=== PATIENT | male | born 1940 | race American Indian/Alaskan Native ===

== ENCOUNTER 2020-06-16 10:27 | Observation (INO) | payer MEDICARE ==
--- NOTE | 2020-06-16 10:48 | Emergency Department Report ---
ED Chest Pain HPI - General Chief Complaint: Chest Pain Stated Complaint: CHEST PAIN PUI?: No Time Seen by Provider: 06/16/20 10:39 Source: patient, EMS ( EMS documentation not available at time of chart dictation ), RN notes reviewed Mode of arrival: Stretcher Limitations: Other (Patient is a poor historian) - History of Present Illness Initial Comments: The patient was evaluated in the emergency department for symptoms described in the history of present illness. He/she was evaluated in the context of the global COVID-19 pandemic, which necessitated consideration that the patient might be at risk for infection with the virus that causes COVID-19. Institutional protocols and algorithms that pertain to the evaluation of patients at risk for COVID-19 are in a state of rapid change based on information released by regulatory bodies including the CDC and federal and state organizations. These policies and algorithms were followed during the patient's care in the emergency department. Please note that these policies, procedures and recommendations changed on a rapid basis. The patient is a 80-year-old gentleman. He is not known to myself previously. 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 He reports his past medical history includes non-Hodgkin's lymphoma, now resolved, rheumatoid arthritis, hypothyroidism, possible hypertension and high cholesterol; he is not certain. He presents to the ER with a complaint of nontraumatic left-sided intermittent chest pain. The chest pain is left-sided and he indicates he does not radiate to the back, arms or neck. He denies vomiting or diaphoresis. He denies new/different shortness of breath. He denies headache and neck pain. He reports that he received the [employer] Vincent COVID- 19 vaccination a few months ago. He reports 1 month ago, he felt like he lost some smell and taste. The patient also endorses some body aches. He denies hematemesis and bright red blood per rectum. He denies urinary symptoms. He is not certain if he took aspirin within the past 7 days. No recent cardiac risk ratification that he is aware of. MD Complaint: chest pain -: Gradual, days(s) Pain Location: left chest Pain Radiation: none Quality: aching Consistency: intermittent Improves With: rest Worsens With: palpation Aspirin use within the Past 7 Days: (0) No - Related Data On Oral Contraceptives: No Allergies Allergy/AdvReac Type Severity Reaction Status Date / Time No Known Allergies Allergy Verified 06/16/20 11:51 Heart Score - HEART Score History: Slightly suspicious EKG: Non-specific Age: > 65 Risk factors: 1-2 risk factors Troponin: < normal limit HEART Score: 4 - EKG Read Time Time EKG Completed: 11:09 EKG Read Time: 11:09 - Critical Actions Critical Actions: 4-6 pts:12-16.6% risk of adverse cardiac event. Should be admitted ED Review of Systems ROS: Stated complaint: CHEST PAIN Other details as noted in HPI Constitutional: denies: fever Eyes: denies: eye discharge ENT: denies: epistaxis Respiratory: denies: wheezing Cardiovascular: chest pain Gastrointestinal: denies: abdominal pain Genitourinary: denies: dysuria Musculoskeletal: myalgia Neurological: weakness Hematological/Lymphatic: denies: easy bleeding ED Past Medical Hx - Past Medical History Previous Medical History?: Yes Hx Heart Attack/AMI: Yes Hx of Cancer: Yes - Social History Smoking Status: Current Every Day Smoker Substance Use Type: Alcohol ED Physical Exam - General Limitations: No Limitations General appearance: alert, in no apparent distress - Head Head exam: Present: atraumatic, normocephalic - Eye Eye exam: Present: normal appearance, EOMI. Absent: nystagmus - ENT ENT exam: Present: normal exam, normal orophraynx, mucous membranes moist, normal external ear exam - Neck Neck exam: Present: normal inspection, full ROM. Absent: tenderness, meningismus - Respiratory Respiratory exam: Present: normal lung sounds bilaterally, chest wall tenderness. Absent: respiratory distress, wheezes, rales, rhonchi, stridor - Cardiovascular Cardiovascular Exam: Present: regular rate, normal rhythm, normal heart sounds. Absent: bradycardia, tachycardia, irregular rhythm, systolic murmur, diastolic murmur, rubs, gallop - GI/Abdominal GI/Abdominal exam: Present: soft. Absent: distended, tenderness, guarding, rebound, rigid, pulsatile mass - Rectal Rectal exam: Present: deferred - Extremities Exam Extremities exam: Present: normal inspection, full ROM, other (2+ pulses noted in the bilateral upper and lower extremities. There is no palpable cord. negative Homans sign. Muscular compartments are soft. The pelvis is stable.). Absent: pedal edema, calf tenderness - Back Exam Back exam: Present: normal inspection, full ROM. Absent: tenderness, CVA tenderness (R), CVA tenderness (L), paraspinal tenderness, vertebral tenderness - Neurological Exam Neurological exam: Present: alert, other (No facial droop. Tongue midline. Extraocular movements intact bilaterally. Facial sensation intact to light touch in V1, V2, V3 distribution bilaterally. 5 and a 5 strength in 4 extremities. Sensation intact to light touch in 4 extremities.). Absent: motor sensory deficit - Psychiatric Psychiatric exam: Present: normal affect, normal mood - Skin Skin exam: Present: warm, dry, intact, normal color. Absent: rash ED Course Vital Signs 06/16/20 06/16/20 06/16/20 10:42 10:48 11:35 Temperature 98.4 F 98.4 F Pulse Rate 98 H Respiratory 20 18 Rate Blood Pressure Blood Pressure 118/63 [Left] O2 Sat by Pulse 98 Oximetry 06/16/20 13:29 Temperature Pulse Rate 108 H Respiratory 15 Rate Blood Pressure 146/88 Blood Pressure [Left] O2 Sat by Pulse 96 Oximetry - Reevaluation(s) Reevaluation #1: 06/16/20 11:09 Differential diagnosis, including but not limited to: Costochondritis, pulmonary embolism, pneumonia, coronary artery disease/acute coronary syndrome, GERD, gastritis, hiatal hernia Assessment and plan: 80-year-old gentleman, who reports a history of "heart attacks", history of resolved non-Hodgkin's lymphoma, with left-sided chest pain, somewhat reproducible, abnormal EKG, without prior for comparison. Patient at moderate risk for major adverse cardiac event as per heart score. Patient is amenable to diagnostic work-up here in the emergency room. We will obtain appropriate laboratory studies, CT scan of the chest given abnormal EKG, history of non-Hodgkin's lymphoma, and advanced age. We will treat his symptoms aggressively. We will reassess after initial data points. Assuming no condition is identified that would require transfer to a tertiary care center, we have recommended admission to the medical service for cardiac risk ratification to this patient. He has articulated understanding. We have also requested that nursing team reconcile patient's home medications. Reevaluation #2: 06/16/20 13:25 Dr Sangeeta Edgar to admit 06/16/20 13:49 The patient was given aspirin by EMS. The patient arrived with a very well-functioning 20-gauge IV on the dorsal distal third of the right upper extremity/forearm. Initially, ct scan technologist reluctant to perform CT angiogram secondary to location of the IV. However, this IV is working well. I also contacted the director of vocational training, Dr. Rader, and we are both in agreement that as long as this IV flushes well, which it does, it is acceptable to use this IV for acquisition of CT angiogram. However, this represented and resulted in a significant delay in acquisition of CT scan. Reevaluation #3: 06/16/20 15:41 CT scan of the chest is negative for pulmonary embolism. FAISAL score - Faisal Score Age > 65: (1) Yes Aspirin use within the Past 7 Days: (0) No 3 or more CAD Risk Factors: (0) No 2 or more Angina events in past 24 hrs: (0) No Known CAD with more than 50% Stenosis: (0) No Elevated Cardiac Markers: (0) No ST Deviation Greater than 0.5mm: (0) No FAISAL Score: 1 ED Medical Decision Making - Lab Data Result diagrams: 06/16/20 10:57 06/16/20 10:57 Vital Signs 06/16/20 06/16/20 10:42 10:48 Temperature 98.4 F 98.4 F Pulse Rate 98 H Respiratory 20 Rate Blood Pressure 118/63 [Left] O2 Sat by Pulse 98 Oximetry Lab Results 06/16/20 06/16/20 06/16/20 Range/Units 10:57 10:57 10:57 WBC 8.2 (4.5-11.0) K/mm3 RBC 5.80 H (3.65-5.03) M/mm3 Hgb 16.1 H (11.8-15.2) gm/dl Hct 48.9 H (35.5-45.6) % MCV 84 (84-94) fl MCH 28 (28-32) pg MCHC 33 (32-34) % RDW 16.1 H (13.2-15.2) % Plt Count 177 (140-440) K/mm3 Lymph % (Auto) 13.7 (13.4-35.0) % Taylor % (Auto) 6.0 (0.0-7.3) % Eos % (Auto) 0.3 (0.0-4.3) % Baso % (Auto) 0.4 (0.0-1.8) % Lymph # (Auto) 1.1 L (1.2-5.4) K/mm3 Taylor # (Auto) 0.5 (0.0-0.8) K/mm3 Eos # (Auto) 0.0 (0.0-0.4) K/mm3 Baso # (Auto) 0.0 (0.0-0.1) K/mm3 Seg Neutrophils % 79.6 H (40.0-70.0) % Seg Neutrophils # 6.5 (1.8-7.7) K/mm3 PT 12.6 (12.2-14.9) Sec. INR 0.96 (0.87-1.13) Sodium 137 (137-145) mmol/L Potassium 4.2 (3.6-5.0) mmol/L Chloride 97.0 L (98-107) mmol/L Carbon Dioxide 21 L (22-30) mmol/L Anion Gap 23 mmol/L BUN 9 (9-20) mg/dL Creatinine 0.8 (0.8-1.3) mg/dL Estimated GFR > 60 ml/min BUN/Creatinine Ratio 11 % Glucose 83 (75-100) mg/dL Calcium 9.1 (8.4-10.2) mg/dL Magnesium (1.7-2.3) mg/dL Total Bilirubin 0.90 (0.1-1.2) mg/dL AST 37 (5-40) units/L ALT 19 (7-56) units/L Alkaline Phosphatase 109 (35-129) units/L Total Creatine Kinase (55-170) units/L Troponin T < 0.010 (0.00-0.029) ng/mL Total Protein 6.8 (6.3-8.2) g/dL Albumin 4.6 (3.9-5) g/dL Albumin/Globulin Ratio 2.1 % 06/16/20 Range/Units 10:57 WBC (4.5-11.0) K/mm3 RBC (3.65-5.03) M/mm3 Hgb (11.8-15.2) gm/dl Hct (35.5-45.6) % MCV (84-94) fl MCH (28-32) pg MCHC (32-34) % RDW (13.2-15.2) % Plt Count (140-440) K/mm3 Lymph % (Auto) (13.4-35.0) % Taylor % (Auto) (0.0-7.3) % Eos % (Auto) (0.0-4.3) % Baso % (Auto) (0.0-1.8) % Lymph # (Auto) (1.2-5.4) K/mm3 Taylor # (Auto) (0.0-0.8) K/mm3 Eos # (Auto) (0.0-0.4) K/mm3 Baso # (Auto) (0.0-0.1) K/mm3 Seg Neutrophils % (40.0-70.0) % Seg Neutrophils # (1.8-7.7) K/mm3 PT (12.2-14.9) Sec. INR (0.87-1.13) Sodium (137-145) mmol/L Potassium (3.6-5.0) mmol/L Chloride (98-107) mmol/L Carbon Dioxide (22-30) mmol/L Anion Gap mmol/L BUN (9-20) mg/dL Creatinine (0.8-1.3) mg/dL Estimated GFR ml/min BUN/Creatinine Ratio % Glucose (75-100) mg/dL Calcium (8.4-10.2) mg/dL Magnesium 1.80 (1.7-2.3) mg/dL Total Bilirubin (0.1-1.2) mg/dL AST (5-40) units/L ALT (7-56) units/L Alkaline Phosphatase (35-129) units/L Total Creatine Kinase 322 H (55-170) units/L Troponin T (0.00-0.029) ng/mL Total Protein (6.3-8.2) g/dL Albumin (3.9-5) g/dL Albumin/Globulin Ratio % Vital Signs 06/16/20 06/16/20 06/16/20 10:42 10:48 11:35 Temperature 98.4 F 98.4 F Pulse Rate 98 H Respiratory 20 18 Rate Blood Pressure 118/63 [Left] O2 Sat by Pulse 98 Oximetry - EKG Data -: EKG Interpreted by Ut EKG shows normal: sinus rhythm Rate: normal - EKG Data When compared to previous EKG there are: previous EKG unavailable 06/16/20 11:09 EKG interpreted at 11: 09 Sinus rhythm, 95 bpm. Left axis deviation. Borderline left anterior fascicular block. Left ventricular hypertrophy. Right bundle branch block. Abnormal EKG. Not a STEMI. QTc 479 ms. This is an abnormal EKG. This is not a STEMI - Radiology Data Radiology results: pending, report reviewed, image reviewed [facility] [address] [place] [address] XRay Report Signed Patient: SHARON PAT MR#: [id number] : 1940 Acct:[id number] Age/Sex: 80 / M ADM Date: 06/16/20 Loc: ED Attending Dr: Ordering Physician: DAMASO MARINO MD Date of Service: 06/16/20 Procedure(s): XR chest 1V ap Accession Number(s): [id number] cc: DAMASO MARINO MD Fluoro Time In Minutes: XR chest 1V ap INDICATION / CLINICAL INFORMATION: Chest Pain. C OMPARISON: None available. FINDINGS: SUPPORT DEVICES: None. HEART /PULMONARY VASCULATURE: Cardiac silhouette and pulmonary vasculature are within normal limits. LUNGS / PLEURA: There is bibasilar volume loss and/or scarring. Calcified granuloma in the lateral right lung base. Additional left basilar nodular opacity likely reflects nipple shadow. No focal airspace consolidation. No pleural effusion or pneumothorax per ADDITIONAL FINDINGS: Remote appearing right rib fracture deformities. No acute osseous findings. IMPRESSION: No acute findings in the chest. Signer Name: Sana Agee MD Si gned: 06/16/2020 11:32 AM Workstation Name: [id number] Transcribed By: SHO Dictated By: SANA AGEE MD Electronically Authenticated By: SANA AGEE MD Signed Date/Time: 06/16/20 1132 DD/ [id number] Critical care attestation.: If time is entered above; I have spent that time in minutes in the direct care of this critically ill patient, excluding procedure time. ED Disposition Clinical Impression: Acute chest pain, Abnormal EKG Disposition: OP ADMIT IP TO THIS HOSP Is pt being admited?: Yes Does the pt Need Aspirin: No Condition: Good
[2020-06-16] MEDS ORDERED: SODIUM CHLORIDE 0.9% 500 ML 500 ML IV ONE (10:59)
[2020-06-16] MEDS ORDERED: ASPIRIN 81 MG TAB CHEW PO ONE (10:59)
[2020-06-16] MEDS ORDERED: MORPHINE 4 MG/1 ML INJ IV ONE (10:59)
[2020-06-16] MEDS ORDERED: NITROGLYCERIN 0.4 MG TAB SUBL SL PRN (10:59)
[2020-06-16 11:24] LABS: Basophils % (Auto) 0.4 % (0.0-1.8); Eosinophils % (Auto) 0.3 % (0.0-4.3); Hematocrit 48.9 % (35.5-45.6); Hemoglobin 16.1 gm/dl (11.8-15.2); Lymphocytes # (Auto) 1.1 K/mm3 (1.2-5.4); Lymphocytes % (Auto) 13.7 % (13.4-35.0); Mean Corpuscular HGB Conc 33 % (32-34); Mean Corpuscular Volume 84 fl (84-94); Monocytes # (Auto) 0.5 K/mm3 (0.0-0.8); Platelet Count 177 K/mm3 (140-440); Red Cell Distribution Width 16.1 % (13.2-15.2)
[2020-06-16 11:34] LABS: INR 0.96 (0.87-1.13)
--- NOTE | 2020-06-16 11:36 | XRay Report ---
XR chest 1V ap INDICATION / CLINICAL INFORMATION: Chest Pain. COMPARISON: None available. FINDINGS: SUPPORT DEVICES: None. HEART /PULMONARY VASCULATURE: Cardiac silhouette and pulmonary vasculature are within normal limits. LUNGS / PLEURA: There is bibasilar volume loss and/or scarring. Calcified granuloma in the lateral ri ght lung base. Additional left basilar nodular opacity likely reflects nipple shadow. No focal airspa ce consolidation. No pleural effusion or pneumothorax per ADDITIONAL FINDINGS: Remote appearing right rib fracture deformities. No acute osseous findings. IMPRESSION: No acute findings in the chest. Signer Name: Terrence Agee MD Signed: 06/16/2020 11:32 AM Workstation Name: [id number]
[2020-06-16 11:55] LABS: Alanine Aminotransferase 19 units/L (7-56); Albumin 4.6 g/dL (3.9-5); BUN/Creatinine Ratio 11; Blood Urea Nitrogen 9 mg/dL (9-20); Calcium 9.1 mg/dL (8.4-10.2); Hemolysis Index 9
--- NOTE | 2020-06-16 15:34 | Cat Scan Report ---
CTA CHEST WITH CONTRAST INDICATION : Acute left-sided chest pain, tachycardia. TECHNIQUE: Axial imaging performed through the chest, with contrast bolus timing set to maximize opa cification of the pulmonary arteries. Sagittal and coronal reformatted images. 3-plane MIP reformatte d images were obtained. All CT scans at this location are performed using CT dose reduction for ALAR A by means of automated exposure control. 100 mL of intravenous contrast administered. COMPARISON: None FINDINGS: Bolus: Contrast bolus timing is adequate. PTE: No filling defect is present to suggest PTE. Mediastinum: Heart and great vessels appear normal. No pathologic mediastinal adenopathy. Lungs: Lungs are clear. Calcified granulomas measuring up to 1 cm noted in the lower lobes bilateral ly. No evidence for pleural effusion or pneumothorax. Bones: Multiple chronic healed right rib fractures are identified. No acute osseous findings. Upper abdomen: Limited images of the upper abdomen demonstrate hepatic steatosis, multiple bilateral renal cysts and a 1.8 cm cyst in the neck of the pancreas. IMPRESSION: No evidence for pulmonary embolus. Old chronic granulomatous disease. No infiltrate, effusion or pneumothorax. Signer Name: Talon Collier Jr, MD Signed: 06/16/2020 3:30 PM Workstation Name: [id number]
[2020-06-16] MEDS ORDERED: MORPHINE 4 MG/1 ML INJ IV PRN (19:57)
--- NOTE | 2020-06-16 23:39 | History and Physical Report ---
History of Present Illness Date of examination: 06/17/20 Date of admission: 06/16/20 13:25 Chief complaint: Chest pain for 1 day History of present illness: 80-year-old male with history of coronary artery disease and non-Hodgkin's lymphoma, rheumatoid arthritis and hypothyroidism comes in for left-sided chest pain since a.m. Intermittent in nature. Chest pain is about 7 on a scale of 1- 10. No shortness of breath. Had Covid vaccination couple of months ago. Had a Vincent [employer] Vincent vaccination. No fever or chills. Heart Score - HEART Score History: Slightly suspicious EKG: Non-specific Age: > 65 Risk factors: 1-2 risk factors Troponin: < normal limit HEART Score: 4 - EKG Read Time Time EKG Completed: 11:09 EKG Read Time: 11:09 - Critical Actions Critical Actions: 4-6 pts:12-16.6% risk of adverse cardiac event. Should be admitted - Past Medical History Previous Medical History?: Yes Hx Heart Attack/AMI: Yes Hx non-Hodgkin's lymphoma - Social History Smoking Status: Current Every Day Smoker Substance Use Type: Alcohol Review of Systems ROS: Stated complaint: CHEST PAIN Other details as noted in HPI Constitutional: denies: fever Eyes: denies: eye discharge ENT: denies: epistaxis Respiratory: denies: wheezing Cardiovascular: chest pain Gastrointestinal: denies: abdominal pain Genitourinary: denies: dysuria Musculoskeletal: myalgia Neurological: weakness Hematological/Lymphatic: denies: easy bleeding Medications and Allergies Allergies Allergy/AdvReac Type Severity Reaction Status Date / Time No Known Allergies Allergy Verified 06/16/20 11:51 Home Medications Medication Instructions Recorded Confirmed Last Taken Type No Known Home Medications [No 06/17/20 06/17/20 Unknown History Reported Home Medications] Active Meds: Active Medications Morphine Sulfate (Morphine 4 Mg/1 Ml Inj) 2 mg IV Q4H PRN PRN Reason: Pain , Severe (7-10) Last Admin: 06/16/20 20:04 Dose: 2 mg Documented by: Nitroglycerin (Nitroglycerin 0.4 Mg Tab Subl) 0.4 mg SL .Q5MIN PRN PRN Reason: Chest Pain Exam - Constitutional Vitals: Temp Pulse Resp BP Pulse Ox 99.0 F 83 18 136/74 93 06/16/20 20:32 06/16/20 20:32 06/16/20 20:32 06/16/20 20:32 06/16/20 20:32 General appearance: Present: no acute distress, well-nourished - EENT Eyes: Present: PERRL ENT: hearing intact, clear oral mucosa - Neck Neck: Present: supple, normal ROM - Respiratory Respiratory effort: normal Respiratory: bilateral: CTA - Cardiovascular Heart rate: 78 Rhythm: regular Heart Sounds: Present: S1 & S2. Absent: rub, click - Extremities Extremities: pulses symmetrical, No edema Peripheral Pulses: within normal limits - Abdominal General gastrointestinal: Present: soft, non-tender, non-distended, normal bowel sounds Male genitourinary: Present: normal - Integumentary Integumentary: Present: clear, warm, dry - Musculoskeletal Musculoskeletal: gait normal, strength equal bilaterally - Psychiatric Psychiatric: appropriate mood/affect, intact judgment & insight - Neurologic Neurologic: CNII-XII intact, moves all extremities - Allied Health Allied health notes reviewed: nursing, case management HEART Score - HEART Score EKG: Non-specific Age: > 65 Risk factors: 1-2 risk factors Troponin: Troponin T < 0.010 ng/mL (0.00-0.029) 06/16/20 16:23 Troponin: < normal limit - Critical Actions Critical Actions: 4-6 pts:12-16.6% risk of adverse cardiac event. Should be admitted Results - Labs CBC & Chem 7: 06/17/20 04:37 06/17/20 04:37 Labs: Laboratory Last Values WBC 8.2 K/mm3 (4.5-11.0) 06/16/20 10:57 RBC 5.80 M/mm3 (3.65-5.03) H 06/16/20 10:57 Hgb 16.1 gm/dl (11.8-15.2) H 06/16/20 10:57 Hct 48.9 % (35.5-45.6) H 06/16/20 10:57 MCV 84 fl (84-94) 06/16/20 10:57 MCH 28 pg (28-32) 06/16/20 10:57 MCHC 33 % (32-34) 06/16/20 10:57 RDW 16.1 % (13.2-15.2) H 06/16/20 10:57 Plt Count 177 K/mm3 (140-440) 06/16/20 10:57 Lymph % (Auto) 13.7 % (13.4-35.0) 06/16/20 10:57 Ness % (Auto) 6.0 % (0.0-7.3) 06/16/20 10:57 Eos % (Auto) 0.3 % (0.0-4.3) 06/16/20 10:57 Baso % (Auto) 0.4 % (0.0-1.8) 06/16/20 10:57 Lymph # (Auto) 1.1 K/mm3 (1.2-5.4) L 06/16/20 10:57 Ness # (Auto) 0.5 K/mm3 (0.0-0.8) 06/16/20 10:57 Eos # (Auto) 0.0 K/mm3 (0.0-0.4) 06/16/20 10:57 Baso # (Auto) 0.0 K/mm3 (0.0-0.1) 06/16/20 10:57 Seg Neutrophils % 79.6 % (40.0-70.0) H 06/16/20 10:57 Seg Neutrophils # 6.5 K/mm3 (1.8-7.7) 06/16/20 10:57 PT 12.6 Sec. (12.2-14.9) 06/16/20 10:57 INR 0.96 (0.87-1.13) 06/16/20 10:57 D-Dimer 1364.36 ng/mlDDU (0-234) H 06/16/20 10:57 Sodium 137 mmol/L (137-145) 06/16/20 10:57 Potassium 4.2 mmol/L (3.6-5.0) 06/16/20 10:57 Chloride 97.0 mmol/L (98-107) L 06/16/20 10:57 Carbon Dioxide 21 mmol/L (22-30) L 06/16/20 10:57 Anion Gap 23 mmol/L 06/16/20 10:57 BUN 9 mg/dL (9-20) 06/16/20 10:57 Creatinine 0.8 mg/dL (0.8-1.3) 06/16/20 10:57 Estimated GFR > 60 ml/min 05/10/21 10:57 BUN/Creatinine Ratio 11 % 06/16/20 10:57 Glucose 83 mg/dL (75-100) 06/16/20 10:57 Calcium 9.1 mg/dL (8.4-10.2) 06/16/20 10:57 Magnesium 1.80 mg/dL (1.7-2.3) 06/16/20 10:57 Total Bilirubin 0.90 mg/dL (0.1-1.2) 06/16/20 10:57 AST 37 units/L (5-40) 06/16/20 10:57 ALT 19 units/L (7-56) 06/16/20 10:57 Alkaline Phosphatase 109 units/L (35-129) 06/16/20 10:57 Total Creatine Kinase 322 units/L (55-170) H 06/16/20 10:57 Troponin T < 0.010 ng/mL (0.00-0.029) 06/16/20 16:23 Total Protein 6.8 g/dL (6.3-8.2) 06/16/20 10:57 Albumin 4.6 g/dL (3.9-5) 06/16/20 10:57 Albumin/Globulin Ratio 2.1 % 06/16/20 10:57 Short CBC 06/17/20 Range/Units 04:37 WBC 9.0 (4.5-11.0) K/mm3 Hgb 15.2 (11.8-15.2) gm/dl Hct 44.6 (35.5-45.6) % Plt Count 122 L (140-440) K/mm3 BMP 06/17/20 04:37 Sodium 137 Potassium 4.1 Chloride 101.0 Carbon Dioxide 24 BUN 15 Creatinine 0.9 Glucose 99 Calcium 8.6 Cardiac Enzymes 06/16/20 Range/Units 16:23 Troponin T < 0.010 (0.00-0.029) ng/mL Liver Function 06/17/20 Range/Units 04:37 Total Bilirubin 0.90 (0.1-1.2) mg/dL AST 30 (5-40) units/L ALT 16 (7-56) units/L Alkaline Phosphatase 115 (35-129) units/L Albumin 3.8 L (3.9-5) g/dL - Imaging and Cardiology EKG: report reviewed (Sinus rhythm no acute ST-T wave changes) Assessment and Plan Advance Directives: Yes (Full code) VTE prophylaxis?: Chemical Plan of care discussed with patient/family: Yes - Patient Problems (1) Acute coronary syndrome Current Visit: Yes Status: Acute Plan to address problem: Chest pain work-up (2) Hodgkins lymphoma Current Visit: Yes Status: Acute (3) Hodgkins lymphoma Current Visit: Yes Status: Acute Plan to address problem: In remission Follow-up with his oncologist (4) DVT prophylaxis Current Visit: Yes Status: Acute Plan to address problem: On heparin and GI prophylaxis
[2020-06-16] MEDS ORDERED: ONDANSETRON 4 MG/2 ML INJ IV PRN (23:41)
[2020-06-16] MEDS ORDERED: METOCLOPRAMIDE 10 MG/2 ML INJ IV PRN (23:41)
[2020-06-16] MEDS ORDERED: oxyCODONE /ACETAMINOPHEN 5-325MG TAB PO PRN (23:41)
[2020-06-16] MEDS ORDERED: ACETAMINOPHEN 325 MG TAB PO PRN (23:41)
[2020-06-17] MEDS: MORPHINE 2 MG/1 ML INJ IV PRN ×2 (00:26→05:21)
[2020-06-17] MEDS: HEPARIN 5,000 UNIT/1 ML VIAL SUB-Q SCH ×2 (00:50→10:25)
[2020-06-17 06:05] LABS: Hematocrit 44.6 % (35.5-45.6); Hemoglobin 15.2 gm/dl (11.8-15.2); Mean Corpuscular HGB Conc 34 % (32-34); Mean Corpuscular Volume 85 fl (84-94); Red Blood Count 5.23 M/mm3 (3.65-5.03); Red Cell Distribution Width 15.8 % (13.2-15.2)
[2020-06-17 06:06] LABS: Platelet Count 122 K/mm3 (140-440)
[2020-06-17 06:29] LABS: Alanine Aminotransferase 16 units/L (7-56); Albumin 3.8 g/dL (3.9-5); BUN/Creatinine Ratio 17; Blood Urea Nitrogen 15 mg/dL (9-20); Calcium 8.6 mg/dL (8.4-10.2)
[2020-06-17 06:57] LABS: Total Cells Counted 100
[2020-06-17 06:59] LABS: Platelet Clumps Rare; Platelet Estimate Consistent w Auto; RBC Morphology Normal
[2020-06-17] MEDS ORDERED: FAMOTIDINE 20 MG TAB PO SCH (10:00)
[2020-06-17] MEDS ORDERED: REGADENOSON 0.4 MG/5 ML INJ IV ONE ×2 (11:53→16:46)
--- NOTE | 2020-06-17 14:02 | Nuclear Medicine Report ---
APPROVED REPORT Exam: Nuclear Stress Test Indication: ACUTE CORONARY SYNDROME Patient Location: -TELEMETRY Room #: 465 Ht: 6 ft 3 in Wt: 245 lbs BSA: 2.39 m2 HR: 65 bpm BP: 130/84 mmHg BMI: 30.61 Stress Test Details Stress Test: Pharmacologic stress testing performed using 0.4 mg of regadenoson per 5 mL given IV over 10 seconds. HR Resting HR: 65 bpmMax Heart Rate (APMHR): 141 bpm Max HR Achieved: 97 bpmTarget HR (85% APMHR): 119 bpm % of APMHR: 68 Recovery HR: 90 bpm BP Resting BP: 123/76 mmHg Max BP: 130/84 mmHg Recovery BP: 119/76 mmHg ECG Resting ECG: SINUS RHYTHM WITH OCCASIONAL PVC'S, RBBB Stress ECG: Sinus Rhythm ST Change: None Arrhythmia: VPC's Recovery ECG: Sinus Rhythm Recovery ST Change: None Recovery Arrhythmia: VPC Clinical Reason for Termination: Completed protocol Stress Symptoms: None Stress ECG Conclusion No chest pain and no ischemic ST changes on pharmacologic stress testing, myocardial perfusion imaging is pending for final test interpretation. NM EXAM: Myocardial Perfusion REST/STRESS Imaging Protocol: Rest Tc-99m/Stress Tc-99m 1 day Resting Data Rest SPECT myocardial perfusion imaging was performed in supine position 45 minutes following the intravenous injection of 10 mCi of Tc-99m Myoview. Time of rest injection: 0900 Pharmacologic Stress Pharmacologic stress test was performed by injecting Regadenoson 0.4 mg IV push followed by the intravenous injection of 28 mCi of Tc-99m Myoview. Time of stress injection: 1145 Gated Stress SPECT was performed 45 minutes after stress injection. Study Data TID = 1.05. Perfusion Nuclear Conclusion ECG Findings: negative for ischemia Clinical Findings: negative for ischemia Nuclear Findings: negative for ischemia Risk Study: low The small fixed basal inferior perfusion defect of moderate intensity, worse on the resting study, appears consistent with diaphragmatic attenuation artifact. There is no ischemia demonstrated on this study, negative study. Gated study describes mild left ventricular systolic dysfunction with ejection fraction calculated at 44%, recommend echocardiographic reassessment of left ventricular systolic function. Conclusion No chest pain and no ischemic ST changes on pharmacologic stress testing, myocardial perfusion imaging is pending for final test interpretation.
--- NOTE | 2020-06-17 16:12 | Discharge Summary ---
Providers - Providers Date of Admission: 06/16/20 13:25 Date of discharge: 06/17/20 Attending physician: TAYLER VIRGEN Primary care physician: LINE COOK Hospitalization Condition: Good Hospital course: History of present illness: 80-year-old male with history of coronary artery disease and non-Hodgkin's lymphoma, rheumatoid arthritis and hypothyroidism comes in for left-sided chest pain since a.m. Intermittent in nature. Chest pain is about 7 on a scale of 1- 10. No shortness of breath. Had Covid vaccination couple of months ago. Had a [employer] vaccination. No fever or chills. 06/17/2020 Patient had a stress test today which was negative for any ischemia Blood pressure well controlled Follow-up with oncology for his non-Hodgkin's lymphoma which is in remission Assessment and Plan Advance Directives: Yes (Full code) VTE prophylaxis?: Chemical Plan of care discussed with patient/family: Yes - Patient Problems (1) Acute coronary syndrome Current Visit: Yes Status: Acute Plan to address problem: Stress test was negative Troponins were negative (2) Non Hodgkins lymphoma Current Visit: Yes Status: Acute Plan to address problem: In remission Follow-up with his oncologist (3) Coronary artery disease Continue aspirin Disposition: DC- TO HOME OR SELFCARE Final Discharge Diagnosis (Prints w/discharge instructions): Acute coronary syndrome. Hypertension. Coronary artery disease Time spent for discharge: 32 minutes - Discharge Diagnoses (1) Acute coronary syndrome Status: Acute (2) Hodgkins lymphoma Status: Acute (3) DVT prophylaxis Status: Acute Core Measure Documentation - Palliative Care Palliative Care/ Comfort Measures: Not Applicable - Core Measures Any of the following diagnoses?: none Exam - Constitutional Vitals: Temp Pulse Resp BP Pulse Ox 98.2 F 84 18 133/76 96 06/17/20 07:41 06/17/20 08:14 06/17/20 07:41 06/17/20 07:41 06/17/20 07:41 General appearance: Present: no acute distress, well-nourished - EENT Eyes: Present: PERRL ENT: hearing intact, clear oral mucosa - Neck Neck: Present: supple, normal ROM - Respiratory Respiratory effort: normal Respiratory: bilateral: CTA - Cardiovascular Heart rate: 78 Rhythm: regular Heart Sounds: Present: S1 & S2. Absent: rub, click - Extremities Extremities: no ischemia, pulses intact, pulses symmetrical, No edema Peripheral Pulses: within normal limits - Abdominal General gastrointestinal: Present: soft, non-tender, non-distended, normal bowel sounds Male genitourinary: Present: normal - Integumentary Integumentary: Present: clear, warm, dry - Musculoskeletal Musculoskeletal: gait normal, strength equal bilaterally - Psychiatric Psychiatric: appropriate mood/affect, intact judgment & insight - Neurologic Neurologic: CNII-XII intact, moves all extremities - Allied Health Allied health notes reviewed: nursing, case management Plan Activity: no restrictions Diet: regular Follow up with: PRIMARY CARE, [Primary Care Provider] - 3-5 Days
[2020-06-17 16:25] VITALS: BP 128/74
--- NOTE | 2020-06-19 11:33 | Electrocardiograph Report ---
[facility] Test Date: 2020-06-16 Test Time: 11:06:13 Pat Name: SHARON PAT Department: Room: A465 Gender: M Test Carrier: DREW : 1940 Requested By: DAMASO MARINO Order Number: [id number] Reading MD: Juan Manuel Paul Measurements Intervals [place] Rate: 95 P: 62 MI: 129 QRS: 0 QRSD: 129 T: 17 QT: 382 QTc: 479 Interpretive Statements Sinus rhythm Probable left atrial enlargement Right bundle branch block Left ventricular hypertrophy No previous ECG available for comparison Electronically Signed On 06-19-2020 11:33:23 EDT by Juan Manuel Paul
--- NOTE | 2020-06-19 11:45 | Electrocardiograph Report ---
[facility] Test Date: 2020-06-17 Test Time: 06:57:57 Pat Name: SHARON PAT Department: Room: A465 1 Gender: M Strategy Consultant: FRANCISCO : 1940 Requested By: DAMASO MARINO Order Number: [id number] Reading MD: Juan Manuel Paul Measurements Intervals [place] Rate: 71 P: 78 TN: 138 QRS: 13 QRSD: 138 T: 57 QT: 439 QTc: 478 Interpretive Statements Sinus rhythm Right bundle branch block Left ventricular hypertrophy Compared to ECG 06/16/2020 11:06:13 No significant changes Electronically Signed On 06-19-2020 11:45:02 EDT by Juan Manuel Paul
--- NOTE | 2020-06-19 11:48 | Treadmill Report ---
[facility] Test Date: 2020-06-17 Test Time: 11:48:36 Pat Name: SHARON PAT Department: Room: A465 1 Gender: M Zigzagger: Dorothy Larose : 1940 Requested By: TAYLER VIRGEN Order Number: [id number] Bruna MD: Juan Manuel Paul Interpretive Statements See dictated report Electronically Signed On 06-19-2020 11:48:00 EDT by Juan Manuel Paul
== END 2020-06-17 16:26 | disposition home or self-care (01) ==
LOC: ED 10:27 → 4A 13:25
PROVIDERS: ADMIT Internal Medicine; ATTEND Internal Medicine
DX: I24.9 Acute ischemic heart disease, unspecified (principal); C81.90 Hodgkin lymphoma, unspecified, unspecified site; I25.10 Atherosclerotic heart disease of native coronary artery without angina pectoris; M06.9 Rheumatoid arthritis, unspecified; F17.210 Nicotine dependence, cigarettes, uncomplicated; R94.31 Abnormal electrocardiogram [ECG] [EKG]; Z79.899 Other long term (current) drug therapy; Z98.890 Other specified postprocedural states
CPT/HCPCS: 36415; 71045; 71275; 78452; 80053; 82550; 83036; 83735; 84484; 85025; 85379; 85610; 93005; 93017; 96372; 96374; 96376; 99285; 99406; A9502; G0378; J1644; J2270; J2785; J7040; Q9967; 85007

== ENCOUNTER 2020-06-18 19:17 | Emergency (ER) | payer MEDICARE ==
[2020-06-18] MEDS ORDERED: SODIUM CHLORIDE 0.9% 1000 ML 1,000 ML IV ONE (19:31)
[2020-06-18] MEDS ORDERED: THIAMINE 100 MG, FOLIC ACID 1 MG, MULTIPLE VITAMIN INJ, ADULT 10 ML in SODIUM CHLORIDE ... IV ONE (19:32)
--- NOTE | 2020-06-18 19:34 | Emergency Department Report ---
<KHURRAM GARLANDMIKAELA KhushbuOctaviano - Last Filed: 06/20/20 13:54> ED Altered Mental Status HPI - General Chief Complaint: Alcohol Stated Complaint: AMS Time Seen by Provider: 06/18/20 19:30 - Related Data Home Medications Medication Instructions Recorded Confirmed Last Taken Meclizine HCl 25 mg PO BID 06/20/20 06/20/20 Unknown lisinopriL [Zestril] 20 mg PO QDAY 06/20/20 06/20/20 Unknown Allergies Allergy/AdvReac Type Severity Reaction Status Date / Time No Known Allergies Allergy Verified 06/16/20 11:51 ED Past Medical Hx - Medications Home Medications: Home Medications Medication Instructions Recorded Confirmed Last Taken Type Meclizine HCl 25 mg PO BID 06/20/20 06/20/20 Unknown History lisinopriL [Zestril] 20 mg PO QDAY 06/20/20 06/20/20 Unknown History - Lab Data Result diagrams: 06/18/20 19:52 06/18/20 19:52 ED Disposition Clinical Impression: Suicidal ideation, Alcohol use disorder Chest pain Qualifiers: Chest pain type: unspecified Qualified Code(s): R07.9 - Chest pain, unspecified Alcohol intoxication Qualifiers: Complication of substance-induced condition: uncomplicated Qualified Code(s): F10.920 - Alcohol use, unspecified with intoxication, uncomplicated Depression Qualifiers: Depression Type: unspecified Qualified Code(s): F32.9 - Major depressive disord er, single episode, unspecified Disposition: DC-01 TO HOME OR SELFCARE Is pt being admited?: No Condition: Stable Additional Instructions: OUTPATIENT MENTAL HEALTH RESOURCES [facility], [facility] Hossein Irwin MD: [address] [place] [address] [facility] [address] [place] [address] [place], [place] [id number] [facility]: [employer] [address] [place] [address] [place] [address] [phone] [facility]: [facility] Healthcare: [address] [place] [address] [address] [place] [address] [place] [address] [place] [id number] [facility]: Mil Yoon MD: [address] [facility] [address] [place], [place] [address] [facility]: [address] [place] [address] [phone] [place] CRISIS AND ACCESS LINE: Referrals: PRIMARY CARE, [Primary Care Provider] - 3-5 Days <DARIANA JIMENEZ III - Last Filed: 06/25/20 23:33> ED Altered Mental Status HPI - General PUI?: No Source: patient, EMS Mode of arrival: Stretcher Limitations: No Limitations - History of Present Illness Initial Comments: Patient is a 80-year-old male who presents emergency room with complaints of wanting help for alcohol use, altered mental status and weakness. Patient presents to the ER with EMS. EMS report received. EMS states that the patient fell walking out of the house due to unstable gait secondary to alcohol intoxication. Patient has a smell of alcohol. Patient has been questions appropriately. Patient states he was here yesterday for chest pain and the chest pain is still there. Patient states that the chest pain started 5 days ago. Patient states the chest pain is better with rest and worse with palpation and movement. Patient denies shortness of breath. Patient denies fever or chills. Patient states he would like to have some help stopping alcohol use. Patient states he drinks every day. Patient states he was recently discharged from this hospital for chest pain and had a full work-up. Patient states he was admitted for 2 to 3 days. Patient states that the chest pain is unchanged. Patient states that he wants to . Patient states he does not want to live anymore. Patient states she is depressed. Patient states he wants to drink himself to . Patient denies recent travel. Patient denies recent international travel. Patient denies exposure to the novel coronavirus. Patient denies sick contacts. Patient denies fever and chills. Patient denies cough. Patient denies diarrhea. Patient denies coming in contact with anybody with symptoms of the novel coronavirus. Complaint: altered mental status, weakness -: Sudden Severity: severe Consistency of Symptoms: constant Associated Symptoms: chest pain, weakness, difficulty walking. denies: cough, diaphoresis, fever/chills, headaches, loss of appetite, malaise, nausea/vomiting, rash, seizure, shortness of breath, syncope, foul smelling urine, diarrhea, incontinence ED Review of Systems ROS: Stated complaint: AMS Other details as noted in HPI Constitutional: denies: chills, fever Eyes: denies: eye pain, eye discharge, vision change ENT: denies: ear pain, throat pain Respiratory: denies: cough, shortness of breath, wheezing Cardiovascular: chest pain. denies: palpitations Endocrine: no symptoms reported Gastrointestinal: denies: abdominal pain, nausea, diarrhea Genitourinary: denies: urgency, dysuria Musculoskeletal: denies: back pain, joint swelling, arthralgia Skin: denies: rash, lesions Neurological: as per HPI. denies: headache, weakness, paresthesias Psychiatric: as per HPI, depression, suicidal thoughts. denies: anxiety, auditory hallucinations, visual hallucinations, homicidal thoughts Hematological/Lymphatic: denies: easy bleeding, easy bruising ED Past Medical Hx - Past Medical History Previous Medical History?: Yes Hx Hypertension: Yes Hx Heart Attack/AMI: Yes Hx Congestive Heart Failure: No Hx Diabetes: No Hx GERD: Yes Hx Asthma: Yes Hx COPD: No - Surgical History Past Surgical History?: No - Family History Family history: no significant - Social History Smoking Status: Current Every Day Smoker Substance Use Type: Alcohol ED Physical Exam - General Limitations: Altered Mental Status General appearance: alert, in no apparent distress - Head Head exam: Present: atraumatic, normocephalic - Eye Eye exam: Present: normal appearance, PERRL Pupils: Present: normal accommodation - ENT ENT exam: Present: mucous membranes dry - Neck Neck exam: Present: normal inspection - Respiratory Respiratory exam: Present: normal lung sounds bilaterally. Absent: respiratory distress, wheezes, rales - Cardiovascular Cardiovascular Exam: Present: regular rate, normal rhythm. Absent: systolic murmur, diastolic murmur, rubs, gallop - GI/Abdominal GI/Abdominal exam: Present: soft, normal bowel sounds. Absent: distended, tenderness, guarding - Rectal Rectal exam: Present: deferred - Extremities Exam Extremities exam: Present: normal inspection - Back Exam Back exam: Present: normal inspection - Neurological Exam Neurological exam: Present: alert, oriented X3 - Psychiatric Psychiatric exam: Present: depressed, suicidal ideation - Skin Skin exam: Present: warm, dry, intact, normal color. Absent: rash - Assessment Assessment Interval: Baseline - Level of Consciousness 1a. Level of Consciousness: alert/keenly responsive - LOC Questions 1b. LOC Questions: answers both correctly - LOC Command 1c. LOC Commands: performs tasks correctly - Best Gaze 2. Best Gaze: normal - Visual 3. Visual: no visual loss - Facial Palsy 4. Facial Palsy: normal symmetrical movement - Motor Arm 5a. Motor Arm Left: no drift 5b. Motor Arm Right: no drift - Motor Leg 6a. Motor Leg Left: no drift 6b. Motor Leg Right: no drift - Limb Ataxia 7. Limb Ataxia: absent - Sensory 8. Sensory: normal - Best Language 9. Best Language: no aphasia - Dysarthria 10. Dysarthria: normal - Extinction and Inattention 11. Extinction/Inattention: no abnormality - Scoring Total Score: 0 Stroke Severity: No Stroke Symptoms ED Course Vital Signs 06/18/20 06/19/20 06/19/20 19:36 13:33 19:00 Temperature 98 F 98.2 F 97.7 F Pulse Rate 81 66 84 Respiratory 18 18 16 Rate Blood Pressure Blood Pressure 140/88 147/78 157/92 [Left] O2 Sat by Pulse 98 100 98 Oximetry 06/19/20 06/20/20 06/20/20 20:20 02:21 05:16 Temperature 97.5 F L 98.5 F Pulse Rate 89 78 Respiratory 16 18 16 Rate Blood Pressure 157/92 Blood Pressure 152/84 [Left] O2 Sat by Pulse 97 98 98 Oximetry 06/20/20 06/20/20 06/20/20 08:00 19:00 19:18 Temperature 98.3 F 98.6 F Pulse Rate 85 78 Respiratory 20 18 18 Rate Blood Pressure Blood Pressure 136/95 134/76 [Left] O2 Sat by Pulse 99 100 Oximetry - Reevaluation(s) Reevaluation #1: Patient placed on a ER hold and a 1013. Patient continues to state he wants to . Patient states he wants to overdose on alcohol. 06/18/20 21:01 Reevaluation #2: Patient is agitated. Patient calmed down on his own. 06/18/20 21:44 Reevaluation #3: Patient is medically cleared. Patient said to negative troponins. Patient can be moved to her psychiatry area. Patient's final disposition will come from our psychiatry team. Patient will remain on a 1013 and an ER hold. 06/18/20 23:42 - Lab Data Result diagrams: 06/18/20 19:52 06/18/20 19:52 Lab Results 06/18/20 06/18/20 06/18/20 Range/Units 19:52 19:52 19:52 WBC 7.9 (4.5-11.0) K/mm3 RBC 5.87 H (3.65-5.03) M/mm3 Hgb 17.1 H (11.8-15.2) gm/dl Hct 50.8 H D (35.5-45.6) % MCV 87 (84-94) fl MCH 29 (28-32) pg MCHC 34 (32-34) % RDW 16.3 H (13.2-15.2) % Plt Count 164 (140-440) K/mm3 Lymph % (Auto) Fisheries Manager Wheeler % (Auto) Fisheries Manager Eos % (Auto) Fisheries Manager Baso % (Auto) Fisheries Manager Lymph # (Auto) Fisheries Manager Wheeler # (Auto) Fisheries Manager Eos # (Auto) Fisheries Manager Baso # (Auto) Fisheries Manager Seg Neutrophils % Fisheries Manager Seg Neutrophils # Fisheries Manager PT 12.8 (12.2-14.9) Sec. INR 0.98 (0.87-1.13) APTT 23.5 L (24.2-36.6) Sec. Sodium 144 D (137-145) mmol/L Potassium 4.2 (3.6-5.0) mmol/L Chloride 105.3 (98-107) mmol/L Carbon Dioxide 23 (22-30) mmol/L Anion Gap 20 mmol/L BUN 6 L (9-20) mg/dL Creatinine 0.8 (0.8-1.3) mg/dL Estimated GFR > 60 ml/min BUN/Creatinine Ratio 8 % Glucose 89 (75-100) mg/dL Calcium 9.0 (8.4-10.2) mg/dL Total Bilirubin 0.40 (0.1-1.2) mg/dL AST 33 (5-40) units/L ALT 19 (7-56) units/L Alkaline Phosphatase 109 (35-129) units/L Total Creatine Kinase 156 (55-170) units/L Troponin T < 0.010 (0.00-0.029) ng/mL Total Protein 6.3 (6.3-8.2) g/dL Albumin 4.4 (3.9-5) g/dL Albumin/Globulin Ratio 2.3 % Urine Color (Yellow) Urine Turbidity (Clear) Urine pH (5.0-7.0) Ur Specific [place] (1.003-1.030) Urine Protein (Negative) mg/dL Urine Glucose (UA) (Negative) mg/dL Urine Ketones (Negative) mg/dL Urine Blood (Negative) Urine Nitrite (Negative) Urine Bilirubin (Negative) Urine Urobilinogen (<2.0) mg/dL Ur Leukocyte Esterase (Negative) Urine WBC (Auto) (0.0-6.0) /HPF Urine RBC (Auto) (0.0-6.0) /HPF U Epithel Cells (Auto) (0-13.0) /HPF Urine Mucus /HPF Salicylates (2.8-20.0) mg/dL Urine Opiates Screen Urine Methadone Screen Acetaminophen (10.0-30.0) ug/mL Ur Barbiturates Screen Ur Phencyclidine Scrn Ur Amphetamines Screen U Benzodiazepines Scrn Urine Cocaine Screen U Marijuana (THC) Screen Drugs of Abuse Note Plasma/Serum Alcohol (0-0.07) % Coronavirus (PCR) (Negative) 06/18/20 06/18/20 06/18/20 Range/Units 19:52 19:52 19:52 WBC (4.5-11.0) K/mm3 RBC (3.65-5.03) M/mm3 Hgb (11.8-15.2) gm/dl Hct (35.5-45.6) % MCV (84-94) fl MCH (28-32) pg MCHC (32-34) % RDW (13.2-15.2) % Plt Count (140-440) K/mm3 Lymph % (Auto) Wheeler % (Auto) Eos % (Auto) Baso % (Auto) Lymph # (Auto) Wheeler # (Auto) Eos # (Auto) Baso # (Auto) Seg Neutrophils % Seg Neutrophils # PT (12.2-14.9) Sec. INR (0.87-1.13) APTT (24.2-36.6) Sec. Sodium (137-145) mmol/L Potassium (3.6-5.0) mmol/L Chloride (98-107) mmol/L Carbon Dioxide (22-30) mmol/L Anion Gap mmol/L BUN (9-20) mg/dL Creatinine (0.8-1.3) mg/dL Estimated GFR ml/min BUN/Creatinine Ratio % Glucose (75-100) mg/dL Calcium (8.4-10.2) mg/dL Total Bilirubin (0.1-1.2) mg/dL AST (5-40) units/L ALT (7-56) units/L Alkaline Phosphatase (35-129) units/L Total Creatine Kinase (55-170) units/L Troponin T (0.00-0.029) ng/mL Total Protein (6.3-8.2) g/dL Albumin (3.9-5) g/dL Albumin/Globulin Ratio % Urine Color (Yellow) Urine Turbidity (Clear) Urine pH (5.0-7.0) Ur Specific [place] (1.003-1.030) Urine Protein (Negative) mg/dL Urine Glucose (UA) (Negative) mg/dL Urine Ketones (Negative) mg/dL Urine Blood (Negative) Urine Nitrite (Negative) Urine Bilirubin (Negative) Urine Urobilinogen (<2.0) mg/dL Ur Leukocyte Esterase (Negative) Urine WBC (Auto) (0.0-6.0) /HPF Urine RBC (Auto) (0.0-6.0) /HPF U Epithel Cells (Auto) (0-13.0) /HPF Urine Mucus /HPF Salicylates < 0.3 L (2.8-20.0) mg/dL Urine Opiates Screen Urine Methadone Screen Acetaminophen 5.0 L (10.0-30.0) ug/mL Ur Barbiturates Screen Ur Phencyclidine Scrn Ur Amphetamines Screen U Benzodiazepines Scrn Urine Cocaine Screen U Marijuana (THC) Screen Drugs of Abuse Note Plasma/Serum Alcohol 0.27 H (0-0.07) % Coronavirus (PCR) (Negative) 06/18/20 06/19/20 06/19/20 Range/Units 22:49 10:10 Unknown WBC (4.5-11.0) K/mm3 RBC (3.65-5.03) M/mm3 Hgb (11.8-15.2) gm/dl Hct (35.5-45.6) % MCV (84-94) fl MCH (28-32) pg MCHC (32-34) % RDW (13.2-15.2) % Plt Count (140-440) K/mm3 Lymph % (Auto) Wheeler % (Auto) Eos % (Auto) Baso % (Auto) Lymph # (Auto) Wheeler # (Auto) Eos # (Auto) Baso # (Auto) Seg Neutrophils % Seg Neutrophils # PT (12.2-14.9) Sec. INR (0.87-1.13) APTT (24.2-36.6) Sec. Sodium (137-145) mmol/L Potassium (3.6-5.0) mmol/L Chloride (98-107) mmol/L Carbon Dioxide (22-30) mmol/L Anion Gap mmol/L BUN (9-20) mg/dL Creatinine (0.8-1.3) mg/dL Estimated GFR ml/min BUN/Creatinine Ratio % Glucose (75-100) mg/dL Calcium (8.4-10.2) mg/dL Total Bilirubin (0.1-1.2) mg/dL AST (5-40) units/L ALT (7-56) units/L Alkaline Phosphatase (35-129) units/L Total Creatine Kinase (55-170) units/L Troponin T < 0.010 (0.00-0.029) ng/mL Total Protein (6.3-8.2) g/dL Albumin (3.9-5) g/dL Albumin/Globulin Ratio % Urine Color Yellow (Yellow) Urine Turbidity Clear (Clear) Urine pH 6.0 (5.0-7.0) Ur Specific [place] 1.010 (1.003-1.030) Urine Protein <15 mg/dl (Negative) mg/dL Urine Glucose (UA) Neg (Negative) mg/dL Urine Ketones Neg (Negative) mg/dL Urine Blood Neg (Negative) Urine Nitrite Neg (Negative) Urine Bilirubin Neg (Negative) Urine Urobilinogen 2.0 (<2.0) mg/dL Ur Leukocyte Esterase Neg (Negative) Urine WBC (Auto) 1.0 (0.0-6.0) /HPF Urine RBC (Auto) 2.0 (0.0-6.0) /HPF U Epithel Cells (Auto) < 1.0 (0-13.0) /HPF Urine Mucus Few /HPF Salicylates (2.8-20.0) mg/dL Urine Opiates Screen Urine Methadone Screen Acetaminophen (10.0-30.0) ug/mL Ur Barbiturates Screen Ur Phencyclidine Scrn Ur Amphetamines Screen U Benzodiazepines Scrn Urine Cocaine Screen U Marijuana (THC) Screen Drugs of Abuse Note Plasma/Serum Alcohol (0-0.07) % Coronavirus (PCR) Negative (Negative) 06/19/20 Range/Units Unknown WBC (4.5-11.0) K/mm3 RBC (3.65-5.03) M/mm3 Hgb (11.8-15.2) gm/dl Hct (35.5-45.6) % MCV (84-94) fl MCH (28-32) pg MCHC (32-34) % RDW (13.2-15.2) % Plt Count (140-440) K/mm3 Lymph % (Auto) Wheeler % (Auto) Eos % (Auto) Baso % (Auto) Lymph # (Auto) Wheeler # (Auto) Eos # (Auto) Baso # (Auto) Seg Neutrophils % Seg Neutrophils # PT (12.2-14.9) Sec. INR (0.87-1.13) APTT (24.2-36.6) Sec. Sodium (137-145) mmol/L Potassium (3.6-5.0) mmol/L Chloride (98-107) mmol/L Carbon Dioxide (22-30) mmol/L Anion Gap mmol/L BUN (9-20) mg/dL Creatinine (0.8-1.3) mg/dL Estimated GFR ml/min BUN/Creatinine Ratio % Glucose (75-100) mg/dL Calcium (8.4-10.2) mg/dL Total Bilirubin (0.1-1.2) mg/dL AST (5-40) units/L ALT (7-56) units/L Alkaline Phosphatase (35-129) units/L Total Creatine Kinase (55-170) units/L Troponin T (0.00-0.029) ng/mL Total Protein (6.3-8.2) g/dL Albumin (3.9-5) g/dL Albumin/Globulin Ratio % Urine Color (Yellow) Urine Turbidity (Clear) Urine pH (5.0-7.0) Ur Specific [place] (1.003-1.030) Urine Protein (Negative) mg/dL Urine Glucose (UA) (Negative) mg/dL Urine Ketones (Negative) mg/dL Urine Blood (Negative) Urine Nitrite (Negative) Urine Bilirubin (Negative) Urine Urobilinogen (<2.0) mg/dL Ur Leukocyte Esterase (Negative) Urine WBC (Auto) (0.0-6.0) /HPF Urine RBC (Auto) (0.0-6.0) /HPF U Epithel Cells (Auto) (0-13.0) /HPF Urine Mucus /HPF Salicylates (2.8-20.0) mg/dL Urine Opiates Screen Negative Urine Methadone Screen Negative Acetaminophen (10.0-30.0) ug/mL Ur Barbiturates Screen Negative Ur Phencyclidine Scrn Negative Ur Amphetamines Screen Negative U Benzodiazepines Scrn Negative Urine Cocaine Screen Negative U Marijuana (THC) Screen Positive Drugs of Abuse Note Disclamer Plasma/Serum Alcohol (0-0.07) % Coronavirus (PCR) (Negative) - EKG Data -: EKG Interpreted by Me EKG shows normal: sinus rhythm, axis, intervals, ST-T waves Rate: tachycardia Interpretation: no acute changes, other (Right bundle branch block) - Radiology Data Radiology results: report reviewed, image reviewed interpreted by me: Chest x-ray: No pneumonia, no pneumothorax, no foreign body, no osseous findings, no acute findings CHEST 1 VIEW 194 INDICATION / CLINICAL INFORMATION: chest pain COMPARISON: 06/16/2020 FINDINGS: SUPPORT DEVICES: None HEART / MEDIASTINUM: Stable LUNGS / PLEURA: Chronic changes are again seen. Calcified granulomata is again seen on the right. Density in the left base is again noted. Bibasilar atelectatic changes are seen. No pneumothorax. ADDITIONAL FINDINGS: Multiple old right rib fractures are again noted. - Medical Decision Making Patient is a 80-year-old male who presents emergency room for suicidal ideations and depression and chest pain. Patient's chest pain going on for for 5 days and the patient was recently discharged from this hospital and had a full work- up for chest pain. Patient was in the hospital for 2 to 3 days. I reviewed the and hospital notes. Patient placed on a 1013 after initial evaluation the patient explained that he was trying to drink himself to . Patient had labs done which were essentially unremarkable except for an elevated alcohol. Patient had 2 - troponins. Patient had an EKG done which was negative for acute finding. Patient EKG unchanged from previous EKGs. I personally reviewed the EKGs. Patient had a chest x-ray done which shows no acute findings. I personally reviewed the chest x-ray. Patient is medically cleared. Patient not require any further emergency medical or inpatient services. Patient placed on a 1013 and will remain in the ER as an ER hold until the final disposition comes from our psychiatry team. Patient was given a banana bag. - Differential Diagnosis Chest pain, alcohol intoxication, suicidal ideation, depression, substance Critical care attestation.: If time is entered above; I have spent that time in minutes in the direct care of this critically ill patient, excluding procedure time. ED Disposition Is pt being admited?: No Does the pt Need Aspirin: No Time of Disposition: 23:46
--- NOTE | 2020-06-18 20:12 | Cat Scan Report ---
CT head/brain wo con INDICATION / CLINICAL INFORMATION: 80 years Male; Altered Mental Status. TECHNIQUE: Routine CT head without contrast. All CT scans at this location are performed using CT dos e reduction for ALARA by means of automated exposure control. COMPARISON: None. FINDINGS: BRAIN / INTRACRANIAL CONTENTS: There is moderate cerebral white matter disease most consistent with m icrovascular angiopathy. There is mild cerebral atrophy with associated prominence of the ventricular system. The motion degrades the image quality. However, there is no clear CT evidence of acute intra cranial hemorrhage or significant mass effect. ORBITS: No significant abnormality of visualized orbits. SINUSES / MASTOIDS: There is moderate mucosal thickening within the left sphenoid sinus. Mild opacifi cation is seen along the visualized inferior left maxillary sinus. CRANIOCERVICAL JUNCTION: No significant abnormality. ADDITIONAL FINDINGS: None. IMPRESSION: 1. 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 Signer Name: Bhupinder Scott MD Signed: 06/18/2020 8:08 PM Workstation Name: [id number]
[2020-06-18 20:20] LABS: INR 0.98 (0.87-1.13)
[2020-06-18 20:21] LABS: Partial Thromboplastin Time 23.5 Sec. (24.2-36.6)
[2020-06-18 20:32] LABS: Alanine Aminotransferase 19 units/L (7-56); Albumin 4.4 g/dL (3.9-5); BUN/Creatinine Ratio 8; Blood Urea Nitrogen 6 mg/dL (9-20); Hemolysis Index 56
[2020-06-18 20:35] LABS: Hematocrit 50.8 % (35.5-45.6); Hemoglobin 17.1 gm/dl (11.8-15.2); Mean Corpuscular HGB Conc 34 % (32-34); Mean Corpuscular Volume 87 fl (84-94); Platelet Count 164 K/mm3 (140-440); Red Blood Count 5.87 M/mm3 (3.65-5.03); Red Cell Distribution Width 16.3 % (13.2-15.2)
--- NOTE | 2020-06-18 20:52 | XRay Report ---
CHEST 1 VIEW 1949 INDICATION / CLINICAL INFORMATION: chest pain COMPARISON: 06/16/2020 FINDINGS: SUPPORT DEVICES: None HEART / MEDIASTINUM: Stable LUNGS / PLEURA: Chronic changes are again seen. Calcified granulomata is again seen on the right. Den sity in the left base is again noted. Bibasilar atelectatic changes are seen. No pneumothorax. ADDITIONAL FINDINGS: Multiple old right rib fractures are again noted. Signer Name: Yeyo Beauchamp MD Signed: 06/18/2020 8:48 PM Workstation Name: [id number]
[2020-06-18] MEDS ORDERED: SODIUM CHLORIDE 0.9% 1000 ML 1,000 ML ONE (22:37)
[2020-06-19 02:09] LABS: Bilirubin,Urine NEG (Negative); Blood,Urine NEG (Negative); Color,Urine Yellow (Yellow); Mucus,Urine FEW /HPF; Protein,Urine <15 mg/dL mg/dL (Negative)
[2020-06-19 02:15] LABS: Amphetamine Screen,Urine Negative; Benzodiazepines Screen,Urine Negative; Cocaine Screen,Urine Negative; Methadone Screen,Urine Negative; Opiate Screen,Urine Negative
[2020-06-19 02:34] LABS: Cannabinoid Screen,Urine Positive
[2020-06-19] MEDS ORDERED: ACETAMINOPHEN 325 MG TAB PO ONE (08:16)
--- NOTE | 2020-06-19 09:21 | Consultation ---
History of Present Illness - Reason for Consult Consult date: 06/19/20 Reason for consult: AMS - History of Present Psychiatric Illness Per ED Note: Patient is a 80-year-old male who presents emergency room with complaints of wanting help for alcohol use, altered mental status and weakness. Patient presents to the ER with EMS. EMS report received. EMS states that the patient fell walking out of the house due to unstable gait secondary to alcohol intoxication. Patient has a smell of alcohol. Patient has been questions appropriately. Patient states he was here yesterday for chest pain and the chest pain is still there. Patient states that the chest pain started 5 days ago. Patient states the chest pain is better with rest and worse with palpation and movement. Patient denies shortness of breath. Patient denies fever or chills. Patient states he would like to have some help stopping alcohol use. Patient states he drinks every day. Patient states he was recently discharged from this hospital for chest pain and had a full work-up. Patient states he was admitted for 2 to 3 days. Patient states that the chest pain is unchanged. Minnie ent states that he wants to . Patient states he does not want to live anymore. Patient states she is depressed. Patient states he wants to drink himself to . During my assessment of 80y/o Migue Ta, the patient states he was here a couple of days ago. He says "but I'm not better. My chest is still hurting and I just don't want to live." He says "I'm tired of all the drinking and the drugs. I can't do it anymore. I just don't want to live." He says he's "very depressed." The patient also verbalizes "hallucinations on and off." He says he "hears people talking." PAST PSYCHIATRIC HISTORY: Diagnoses: Depression Suicide attempts or Self-harm behavior: Denies Prior psychiatric hospitalizations: Denies Substance Abuse history: crack, alcohol Previous psychiatric medications tried: Cymbalta Outpatient treatment: Yes, at the [facility] History None reported or documented SOCIAL HISTORY Marital Status: Living Arrangements: long-term Employment Status: disabled Access to guns/weapons: patient denies Education: college History of Abuse: patient denies Legal History: patient denies ROS: Constitutional: Negative for weight loss ENT: Negative for stridor Respiratory: Negative for cough or hemoptysis All other systems reviewed and are negative MENTAL STATUS EXAMINATION General Appearance and Behavior: Age appropriate, good hygiene, wearing appropriate clothes, good eye contact Cooperation: Participating/engaged, but Guarded Psychomotor Behavior: Psychomotor normal Mood: depressed Affect and affective range: irritable, labile Thought Process: illogical Thought Content: hopelessness, helplessness Speech: Normal rate, volume and rhythm Intellectual Functioning: Average Suicidal Ideation: Yes Homicidal Ideation: Denies HI Impulse Control: Impaired Insight and Judgment: Limited insight and judgment Memory: Normal Attention: Normal Orientation: Alert, oriented - Psychiatric problem (1) Major Depressive Disorder (2) Polysubtance abuse Treatment Plan 1013 Olanzapine 2.5mg po daily Trazodone 50mg po qhs Prozac 10mg po daily SItter: Defer to primary Medical: Per primary Disposition: Recommend acute psychiatric inpatient will follow. Thanks for this consulty Case staffed with Dr. Myers Medications and Allergies Allergies Allergy/AdvReac Type Severity Reaction Status Date / Time No Known Allergies Allergy Verified 06/16/20 11:51 Home Medications Medication Instructions Recorded Confirmed Last Taken Type No Known Home Medications [No 06/17/20 06/17/20 Unknown History Reported Home Medications] Mental Status Exam - Vital signs Last Vital Signs Temp 98 F 06/18/20 19:36 Pulse 81 06/18/20 19:36 Resp 18 06/18/20 19:36 BP 140/88 06/18/20 19:36 Pulse Ox 98 06/18/20 19:36 Results Result Diagrams: 06/18/20 19:52 06/18/20 19:52 Abnormal lab results 06/18/20 06/18/20 06/18/20 Range/Units 19:52 19:52 19:52 RBC 5.87 H (3.65-5.03) M/mm3 Hgb 17.1 H (11.8-15.2) gm/dl Hct 50.8 H D (35.5-45.6) % RDW 16.3 H (13.2-15.2) % APTT 23.5 L (24.2-36.6) Sec. BUN 6 L (9-20) mg/dL Salicylates (2.8-20.0) mg/dL Acetaminophen (10.0-30.0) ug/mL Plasma/Serum Alcohol (0-0.07) % 06/18/20 06/18/20 06/18/20 Range/Units 19:52 19:52 19:52 RBC (3.65-5.03) M/mm3 Hgb (11.8-15.2) gm/dl Hct (35.5-45.6) % RDW (13.2-15.2) % APTT (24.2-36.6) Sec. BUN (9-20) mg/dL Salicylates < 0.3 L (2.8-20.0) mg/dL Acetaminophen 5.0 L (10.0-30.0) ug/mL Plasma/Serum Alcohol 0.27 H (0-0.07) % All other labs normal.
[2020-06-19] MEDS: FLUoxetine 10 MG TAB PO SCH (11:00)
--- NOTE | 2020-06-19 11:49 | Event Note ---
Date: 06/19/20 S: " I'm not doing okay." Patient reports continued SI. O: Vital signs stable; patient is calm and cooperative A: Major depressive disorder, polysubstance abuse, lymphoma, rheumatoid arthritis, hypothyroidism, hypertension P: 1013; awaiting placement for inpatient psychiatric treatment; patient does not know what home medications he was taking previously, reports noncompliance, states it has been "a while" since he took any of his medication
--- NOTE | 2020-06-19 12:09 | Electrocardiograph Report ---
[facility] Test Date: 2020-06-18 Test Time: 22:48:57 Pat Name: SHARON PAT Department: Room: Gender: M Rehab Aide: NILO : 1940 Requested By: DARIANA JIMENEZ III Order Number: [id number] Reading MD: Juan Manuel Paul Measurements Intervals [place] Rate: 101 P: 70 SC: 142 QRS: 57 QRSD: 135 T: 61 QT: 373 QTc: 483 Interpretive Statements Sinus tachycardia Right bundle branch block Compared to ECG 06/17/2020 06:57:57 Electronically Signed On 06-19-2020 12:09:07 EDT by Juan Manuel Paul
[2020-06-19] MEDS ORDERED: MELATONIN 5 MG TAB PO SCH (22:00)
--- NOTE | 2020-06-20 10:20 | Progress Note ---
Subjective - Reason for Consult Consult date: 06/20/20 Reason for consult: MHE Requesting physician: DARIANA JIMENEZ III - Chief Complaint Chief complaint: Psych Progress HPI In my interview with this patient his morning, patient reported his mood is good, patient states that he feels fine, that the only reason why he must have said what he said about the suicidal was because of his drunk status. Patient states that he needs help in finding a place, and that the current place that he is renting is not a safe neighborhood for him. Patient denies SI, HI or AVH. Endorses homelessness and alcohol use as primary concern Review of Symptoms: Constitutional: Negative for weight loss ENT: Negative for stridor Respiratory: Negative for cough or hemoptysis All other systems reviewed and are negative MENTAL STATUS EXAMINATION General Appearance and Behavior: Age appropriate, good hygiene, wearing appropriate clothes, good eye contact, cooperative polite with questioning. Cooperation: Participating/engaged Psychomotor Behavior: unremarkable and within normal limits Mood: Good Affect and affective range: congruent with mood Thought Process: Fluent/Logical, Thought Content: Within reality, Speech: Normal volume, Regular rate and rhythm, Intellectual Functioning: Average Suicidal Ideation: Denies SI Homicidal Ideation: Denies HI Impulse Control: Unimpaired Insight and Judgment: Normal insight and judgment, Memory: Normal, Attention: Normal, Orientation: Alert, oriented, Assessment and Plan - Patient Problems (1) Alcohol use disorder Current Visit: Yes Status: Acute F10.10 Treatment Plan MEDICATIONS: Risks, benefits and alternatives of medications discussed with the patient, questions answered and consent obtained from patient. PSYCHOTHERAPY: Supportive psychotherapy provided MEDICAL: Per primary team DELIRIUM PRECAUTIONS: Please re-orient patient frequently, keep lights on during the day, and minimize benzodiazepines and opiates as these medications could worsen patient's confusion. LOGISTICS SYSTEM ENGINEER: DISPOSITION: Do Not Recommend acute inpatient psychiatric hospitalization at this time. Case discussed with Dr. Myers who agrees with current disposition LEGAL STATUS: 1013 rescinded. Defer to case management FOLLOW-UP: Will sign off Thank you for the consult. Please contact with any questions and/or concerns. Mental Status Exam - Vital signs Last Vital Signs Temp 98.5 F 06/20/20 02:21 Pulse 78 06/20/20 02:21 Resp 16 06/20/20 05:16 BP 152/84 06/20/20 02:21 Pulse Ox 98 06/20/20 05:16 Assessment and Plan - Patient Problems (1) Alcohol use disorder Current Visit: Yes Status: Acute
--- NOTE | 2020-06-20 11:23 | Event Note ---
Date: 06/20/20 S: Patient requesting Tylenol for his chronic left shoulder pain. Otherwise no issues. O: Vital signs stable; patient is calm and cooperative A: Major depressive disorder, polysubstance abuse, lymphoma, rheumatoid arthritis, hypothyroidism, hypertension P: 1013 rescinded; patient seen and evaluated by psychiatry team and has been deemed cleared for discharge home
[2020-06-20] MEDS: FLUoxetine 10 MG TAB PO SCH (12:22)
[2020-06-20 20:20] VITALS: BP 134/76
== END 2020-06-20 20:00 | disposition home or self-care (01) ==
LOC: ED 19:17
DX: F10.10 Alcohol abuse, uncomplicated (principal); I10 Essential (primary) hypertension; I25.2 Old myocardial infarction; K21.9 Gastro-esophageal reflux disease without esophagitis; J45.909 Unspecified asthma, uncomplicated; Z79.899 Other long term (current) drug therapy; Z20.822 Contact with and (suspected) exposure to COVID-19
CPT/HCPCS: 36415; 70450; 71045; 80053; 80307; 81001; 82550; 84484; 85025; 85610; 85730; 93005; 96365; 96366; 99285; J3411; J7030; U0003; 80320; G0480

== ENCOUNTER 2020-07-04 19:49 | Observation (INO) | payer MEDICARE ==
[2020-07-04] MEDS ORDERED: ASPIRIN 325 MG TAB PO ONE (22:31)
[2020-07-04 22:53] LABS: Basophils # (Auto) 0.1 K/mm3 (0.0-0.1); Basophils % (Auto) 0.8 % (0.0-1.8); Eosinophils # (Auto) 0.2 K/mm3 (0.0-0.4); Eosinophils % (Auto) 1.7 % (0.0-4.3); Hematocrit 44.7 % (35.5-45.6); Hemoglobin 15.2 gm/dl (11.8-15.2); Lymphocytes # (Auto) 3.8 K/mm3 (1.2-5.4); Mean Corpuscular HGB Conc 34 % (32-34); Mean Corpuscular Volume 86 fl (84-94); Monocytes # (Auto) 0.7 K/mm3 (0.0-0.8); Monocytes % (Auto) 6.3 % (0.0-7.3); Platelet Count 236 K/mm3 (140-440); Red Blood Count 5.23 M/mm3 (3.65-5.03); Red Cell Distribution Width 17.7 % (13.2-15.2)
[2020-07-04 23:03] LABS: Alanine Aminotransferase 22 units/L (7-56); Albumin 4.6 g/dL (3.9-5); BUN/Creatinine Ratio 9; Blood Urea Nitrogen 10 mg/dL (9-20); Calcium 9.7 mg/dL (8.4-10.2); Hemolysis Index 5
--- NOTE | 2020-07-04 23:06 | XRay Report ---
CHEST 1 VIEW 07/04/2020 10:57 PM INDICATION / CLINICAL INFORMATION: Chest pain. COMPARISON: 06/18/20. FINDINGS: SUPPORT DEVICES: None. HEART / MEDIASTINUM: The heart size and pulmonary vasculature are normal. The aorta is mildly elongat ed and tortuous with calcification in the arch, but no evidence of aneurysm. LUNGS / PLEURA: There is a calcified granuloma in the right lower lung. There is mild scarring in bot h lung bases. No new parenchymal or pleural abnormality. No pneumothorax. ADDITIONAL FINDINGS: There are multiple old healed right rib fractures. IMPRESSION: No acute abnormality. Signer Name: Eddi Bai MD Signed: 07/04/2020 11:02 PM Workstation Name: [id number]
[2020-07-05] MEDS ORDERED: FUROSEMIDE 40 MG/4 ML INJ IV ONE (09:45)
--- NOTE | 2020-07-05 09:49 | Emergency Department Report ---
ED Chest Pain HPI - General Chief Complaint: Chest Pain Stated Complaint: DEHYDRATION Time Seen by Provider: 07/05/20 09:39 Source: patient Mode of arrival: Stretcher Limitations: No Limitations - History of Present Illness Initial Comments: Patient is 80 years old male with history of hypertension, congestive heart failure, Hodgkin's lymphoma and coronary artery disease. Patient presented to the ER complaining of left-sided chest pain associated with shortness of breath for the last 2 days. Patient denied any cough, fever or chills. Patient also stated that he feels weak all over and very exhausted even if he walks for short distance. Patient stated that he is not taking any medication at this moment. MD Complaint: chest pain -: days(s) Onset: during rest, during exertion Pain Location: left chest Pain Radiation: none Severity: moderate Severity scale (0 -10): 10 Quality: tightness Worsens With: exertion - Related Data Home Medications Medication Instructions Recorded Confirmed Last Taken Meclizine HCl 25 mg PO BID 06/20/20 07/05/20 Unknown Previous Rx's Medication Instructions Recorded Last Taken Type Meloxicam [Mobic] 15 mg PO QDAY #10 tablet 07/06/20 Unknown Rx lisinopriL [Zestril TAB] 20 mg PO QDAY #90 tablet 07/06/20 Unknown Rx Allergies Allergy/AdvReac Type Severity Reaction Status Date / Time No Known Allergies Allergy Verified 06/16/20 11:51 Heart Score - HEART Score History: Moderately suspicious EKG: Non-specific Age: > 65 Risk factors: > 3 risk factors or hx of atherosclerotic disease Troponin: < normal limit HEART Score: 6 - EKG Read Time Time EKG Completed: 22:19 EKG Read Time: 22:21 - Critical Actions Critical Actions: 4-6 pts:12-16.6% risk of adverse cardiac event. Should be admitted ED Review of Systems ROS: Stated complaint: DEHYDRATION Other details as noted in HPI Comment: All other systems reviewed and negative Constitutional: denies: chills, fever Respiratory: shortness of breath, SOB with exertion, SOB at rest. denies: cough, wheezing Cardiovascular: chest pain Gastrointestinal: denies: abdominal pain, nausea, vomiting Musculoskeletal: denies: back pain Neurological: weakness. denies: headache, numbness, paresthesias, confusion ED Past Medical Hx - Past Medical History Previous Medical History?: Yes Hx Hypertension: Yes Hx Heart Attack/AMI: Yes Hx Congestive Heart Failure: No Hx Diabetes: No Hx GERD: Yes Hx Asthma: Yes Hx COPD: No - Surgical History Past Surgical History?: No - Social History Smoking Status: Current Every Day Smoker Substance Use Type: Alcohol, Marijuana - Medications Home Medications: Home Medications Medication Instructions Recorded Confirmed Last Taken Type Meclizine HCl 25 mg PO BID 06/20/20 07/05/20 Unknown History Meloxicam [Mobic] 15 mg PO QDAY #10 tablet 07/06/20 Unknown Rx lisinopriL [Zestril TAB] 20 mg PO QDAY #90 tablet 07/06/20 Unknown Rx ED Physical Exam - General Limitations: No Limitations General appearance: alert, in no apparent distress - Head Head exam: Present: atraumatic, normocephalic, normal inspection - Eye Eye exam: Present: normal appearance - ENT ENT exam: Present: normal orophraynx - Neck Neck exam: Present: normal inspection, full ROM. Absent: tenderness, meningismus - Respiratory Respiratory exam: Present: normal lung sounds bilaterally - Cardiovascular Cardiovascular Exam: Present: regular rate, normal rhythm, normal heart sounds - GI/Abdominal GI/Abdominal exam: Present: soft, normal bowel sounds. Absent: distended, tenderness, guarding, rebound, rigid, organomegaly, mass, bruit, pulsatile mass, hernia - Extremities Exam Extremities exam: Present: normal inspection, full ROM, normal capillary refill - Back Exam Back exam: Present: normal inspection, full ROM. Absent: CVA tenderness (R), CVA tenderness (L) - Neurological Exam Neurological exam: Present: alert, oriented X3, CN II-XII intact - Psychiatric Psychiatric exam: Present: normal mood - Skin Skin exam: Present: warm, intact, normal color ED Course Vital Signs 07/04/20 07/05/20 07/05/20 22:01 09:42 09:46 Temperature 98.1 F Pulse Rate 96 H 91 H Respiratory 20 22 Rate Blood Pressure 145/89 Blood Pressure 116/74 [Right] O2 Sat by Pulse 96 80 L 98 Oximetry 07/05/20 07/05/20 07/05/20 10:16 11:00 11:16 Temperature Pulse Rate 87 101 H 91 H Respiratory 17 20 20 Rate Blood Pressure 136/82 136/82 136/82 Blood Pressure [Right] O2 Sat by Pulse 97 97 96 Oximetry 07/05/20 07/05/20 11:17 11:30 Temperature Pulse Rate 88 Respiratory 16 21 Rate Blood Pressure 136/82 Blood Pressure [Right] O2 Sat by Pulse 97 Oximetry ODETTE score - Odette Score Age > 65: (1) Yes Aspirin use within the Past 7 Days: (0) No 3 or more CAD Risk Factors: (0) No 2 or more Angina events in past 24 hrs: (0) No Known CAD with more than 50% Stenosis: (0) No Elevated Cardiac Markers: (0) No ST Deviation Greater than 0.5mm: (0) No ODETTE Score: 1 ED Medical Decision Making - Lab Data Result diagrams: 07/06/20 03:59 07/06/20 03:59 - EKG Data -: EKG Interpreted by Me EKG shows normal: sinus rhythm Rate: normal - EKG Data Interpretation: no acute changes - Radiology Data Radiology results: report reviewed - Medical Decision Making Patient is 80 years old male with history of hypertension, congestive heart failure, Hodgkin's lymphoma and coronary artery disease. Patient presented to the ER complaining of left-sided chest pain associated with shortness of breath for the last 2 days. Patient denied any cough, fever or chills. Patient also stated that he feels weak all over and very exhausted even if he walks for short distance. Patient stated that he is not taking any medication at this moment. EKG showed no ST elevation. Chest x-ray is unremarkable. Labs reviewed and is negative including troponin. Patient received Lasix and aspirin. I discussed the patient with Dr. Edgar, he advised to admit the patient to Dr. Baeza for further management. Critical care attestation.: If time is entered above; I have spent that time in minutes in the direct care of this critically ill patient, excluding procedure time. ED Disposition Clinical Impression: Acute chest pain, Hodgkins lymphoma, Acute exacerbation of CHF (congestive heart failure) Disposition: OP ADMIT IP TO THIS HOSP Is pt being admited?: Yes Condition: Stable
[2020-07-05] MEDS ORDERED: MORPHINE 2 MG/1 ML INJ IV ONE (12:05)
[2020-07-05] MEDS ORDERED: ACETAMINOPHEN 325 MG TAB PO PRN (15:51)
[2020-07-05] MEDS ORDERED: METOCLOPRAMIDE 10 MG/2 ML INJ IV PRN (15:51)
[2020-07-05] MEDS ORDERED: ONDANSETRON 4 MG/2 ML INJ IV PRN (15:51)
[2020-07-05] MEDS ORDERED: oxyCODONE /ACETAMINOPHEN 5-325MG TAB PO PRN (15:51)
--- NOTE | 2020-07-05 15:51 | History and Physical Report ---
History of Present Illness Date of examination: 07/05/20 Date of admission: 07/05/20 10:59 Chief complaint: Chest pain since a.m. History of present illness: Patient is 80 years old male with history of hypertension, congestive heart failure, Hodgkin's lymphoma and coronary artery disease. Patient presented to the ER complaining of left-sided chest pain associated with shortness of breath for the last 2 days. Patient denied any cough, fever or chills. Patient also stated that he feels weak all over and very exhausted even if he walks for short distance. Patient stated that he is not taking any medication at this moment. Last admission reviewed. Stress test was negative Nuclear stress test 06/17/2020 Negative for ischemia Heart Score - HEART Score History: Moderately suspicious EKG: Non-specific Age: > 65 Risk factors: > 3 risk factors or hx of atherosclerotic disease Troponin: < normal limit HEART Score: 6 - Critical Actions Critical Actions: 4-6 pts:12-16.6% risk of adverse cardiac event. Should be admitted - Past Medical History Previous Medical History?: Yes --Hypertension: Yes --Heart Attack/AMI: Yes --GERD: Yes --Asthma: Yes - Surgical History Past Surgical History?: No - Social History Smoking Status: Current Every Day Smoker Substance Use Type: Alcohol, Marijuana Family history Htn Review of Systems ROS: Stated complaint: DEHYDRATION Other details as noted in HPI Comment: All other systems reviewed and negative Constitutional: denies: chills, fever Respiratory: shortness of breath, SOB with exertion, SOB at rest. denies: cough, wheezing Cardiovascular: chest pain Gastrointestinal: denies: abdominal pain, nausea, vomiting Musculoskeletal: denies: back pain Neurological: weakness. denies: headache, numbness, paresthesias, confusion Medications and Allergies Allergies Allergy/AdvReac Type Severity Reaction Status Date / Time No Known Allergies Allergy Verified 06/16/20 11:51 Home Medications Medication Instructions Recorded Confirmed Last Taken Type Meclizine HCl 25 mg PO BID 06/20/20 07/05/20 Unknown History lisinopriL [Zestril] 20 mg PO QDAY 06/20/20 07/05/20 Unknown History Exam - Constitutional Vitals: Temp Pulse Resp BP Pulse Ox 98.1 F 88 21 136/82 97 07/04/20 22:01 07/05/20 11:30 07/05/20 11:30 07/05/20 11:30 07/05/20 11:30 General appearance: Present: no acute distress, well-nourished - EENT Eyes: Present: PERRL ENT: hearing intact, clear oral mucosa - Neck Neck: Present: supple, normal ROM - Respiratory Respiratory effort: normal Respiratory: bilateral: CTA - Cardiovascular Heart rate: 78 Rhythm: regular Heart Sounds: Present: S1 & S2. Absent: rub, click - Extremities Extremities: pulses symmetrical, No edema Peripheral Pulses: within normal limits - Abdominal General gastrointestinal: Present: soft, non-tender, non-distended, normal bowel sounds Male genitourinary: Present: normal - Integumentary Integumentary: Present: clear, warm, dry - Musculoskeletal Musculoskeletal: gait normal, strength equal bilaterally - Psychiatric Psychiatric: appropriate mood/affect, intact judgment & insight - Neurologic Neurologic: CNII-XII intact, moves all extremities HEART Score - HEART Score EKG: Non-specific Age: > 65 Risk factors: > 3 risk factors or hx of atherosclerotic disease Troponin: Troponin T < 0.010 ng/mL (0.00-0.029) 07/05/20 04:47 Troponin: < normal limit - Critical Actions Critical Actions: 4-6 pts:12-16.6% risk of adverse cardiac event. Should be admitted Results - Labs CBC & Chem 7: 07/06/20 03:59 07/06/20 03:59 Labs: Laboratory Last Values WBC 11.0 K/mm3 (4.5-11.0) 07/04/20 22:14 RBC 5.23 M/mm3 (3.65-5.03) H 07/04/20 22:14 Hgb 15.2 gm/dl (11.8-15.2) 07/04/20 22:14 Hct 44.7 % (35.5-45.6) 07/04/20 22:14 MCV 86 fl (84-94) 07/04/20 22:14 MCH 29 pg (28-32) 07/04/20 22:14 MCHC 34 % (32-34) 07/04/20 22:14 RDW 17.7 % (13.2-15.2) H 07/04/20 22:14 Plt Count 236 K/mm3 (140-440) 07/04/20 22:14 Lymph % (Auto) 35.0 % (13.4-35.0) 07/04/20 22:14 [place] % (Auto) 6.3 % (0.0-7.3) 07/04/20 22:14 Eos % (Auto) 1.7 % (0.0-4.3) 07/04/20 22:14 Baso % (Auto) 0.8 % (0.0-1.8) 07/04/20 22:14 Lymph # (Auto) 3.8 K/mm3 (1.2-5.4) 07/04/20 22:14 [place] # (Auto) 0.7 K/mm3 (0.0-0.8) 07/04/20 22:14 Eos # (Auto) 0.2 K/mm3 (0.0-0.4) 07/04/20 22:14 Baso # (Auto) 0.1 K/mm3 (0.0-0.1) 07/04/20 22:14 Seg Neutrophils % 56.2 % (40.0-70.0) 07/04/20 22:14 Seg Neutrophils # 6.2 K/mm3 (1.8-7.7) 07/04/20 22:14 Sodium 140 mmol/L (137-145) 07/04/20 22:14 Potassium 3.9 mmol/L (3.6-5.0) 07/04/20 22:14 Chloride 102.1 mmol/L (98-107) 07/04/20 22:14 Carbon Dioxide 25 mmol/L (22-30) 07/04/20 22:14 Anion Gap 17 mmol/L 07/04/20 22:14 BUN 10 mg/dL (9-20) 07/04/20 22:14 Creatinine 1.1 mg/dL (0.8-1.3) 07/04/20 22:14 Estimated GFR > 60 ml/min 07/04/20 22:14 BUN/Creatinine Ratio 9 % 07/04/20 22:14 Glucose 118 mg/dL (75-100) H 07/04/20 22:14 Calcium 9.7 mg/dL (8.4-10.2) 07/04/20 22:14 Total Bilirubin 0.40 mg/dL (0.1-1.2) 07/04/20 22:14 AST 26 units/L (5-40) 07/04/20 22:14 ALT 22 units/L (7-56) 07/04/20 22:14 Alkaline Phosphatase 124 units/L (35-129) 07/04/20 22:14 Troponin T < 0.010 ng/mL (0.00-0.029) 07/05/20 04:47 NT-Pro-B Natriuret Pep 86.10 pg/mL (0-900) 07/05/20 09:45 Total Protein 6.3 g/dL (6.3-8.2) 07/04/20 22:14 Albumin 4.6 g/dL (3.9-5) 07/04/20 22:14 Albumin/Globulin Ratio 2.7 % 07/04/20 22:14 - Imaging and Cardiology EKG: report reviewed (Normal sinus rhythm no acute ST-T wave changes) Gutiérrez/IV: Voiding Method Toilet Assessment and Plan Advance Directives: Yes (Full code) VTE prophylaxis?: Chemical Plan of care discussed with patient/family: Yes - Patient Problems (1) Acute coronary syndrome Current Visit: No Status: Acute Plan to address problem: Serial troponins Patient has chest wall tenderness Possible costochondritis (2) Hodgkins lymphoma Current Visit: Yes Status: Chronic Plan to address problem: In remission Patient to follow-up with his oncologist Patient to follow-up with oncology--referral given to Dr. Alford (3) Coronary artery disease Current Visit: Yes Status: Chronic Qualifiers: Coronary Disease-Associated Artery/Lesion type: [place] artery [place] vs. transplanted heart: [place] heart Plan to address problem: On aspirin (4) HTN (hypertension) Current Visit: Yes Status: Chronic Qualifiers: Hypertension type: essential hypertension Qualified Code(s): I10 - Essential (primary) hypertension (5) Alcohol use disorder Current Visit: No Status: Chronic Plan to address problem: No alcohol withdrawal (6) DVT prophylaxis Current Visit: No Status: Acute Plan to address problem: On heparin and GI prophylaxis
[2020-07-05] MEDS ORDERED: SODIUM CHLORIDE 0.9% 1000 ML 1,000 ML IV SCH (16:00)
[2020-07-05] MEDS: HYDROmorphone 1 MG/1 ML INJ IV PRN ×3 (16:39→23:37)
[2020-07-05] MEDS: LISINOPRIL 20 MG TAB PO SCH (16:39)
[2020-07-05] MEDS ORDERED: MECLIZINE 25 MG TAB PO SCH (17:00)
[2020-07-05] MEDS: FAMOTIDINE 20 MG TAB PO SCH (22:00)
[2020-07-05] MEDS: MECLIZINE 12.5 MG TAB PO SCH (22:54)
[2020-07-06 04:50] LABS: Basophils # (Auto) 0.1 K/mm3 (0.0-0.1); Basophils % (Auto) 0.7 % (0.0-1.8); Eosinophils # (Auto) 0.2 K/mm3 (0.0-0.4); Eosinophils % (Auto) 1.8 % (0.0-4.3); Hematocrit 41.9 % (35.5-45.6); Hemoglobin 14.3 gm/dl (11.8-15.2); Lymphocytes % (Auto) 21.5 % (13.4-35.0); Mean Corpuscular HGB Conc 34 % (32-34); Mean Corpuscular Volume 86 fl (84-94); Monocytes # (Auto) 0.7 K/mm3 (0.0-0.8); Monocytes % (Auto) 7.5 % (0.0-7.3); Platelet Count 191 K/mm3 (140-440); Red Blood Count 4.88 M/mm3 (3.65-5.03); Red Cell Distribution Width 17.6 % (13.2-15.2)
[2020-07-06 05:10] LABS: Alanine Aminotransferase 19 units/L (7-56); Albumin 4.1 g/dL (3.9-5); BUN/Creatinine Ratio 13; Blood Urea Nitrogen 14 mg/dL (9-20); Hemolysis Index 6
[2020-07-06] MEDS: HYDROmorphone 1 MG/1 ML INJ IV PRN ×2 (09:07→13:57)
[2020-07-06] MEDS: MECLIZINE 12.5 MG TAB PO SCH (09:07)
[2020-07-06] MEDS: FAMOTIDINE 20 MG TAB PO SCH (09:09)
[2020-07-06] MEDS: LISINOPRIL 20 MG TAB PO SCH (12:08)
[2020-07-06 12:48] VITALS: BP 92/54
--- NOTE | 2020-07-06 15:46 | Discharge Summary ---
Providers - Providers Date of Admission: 07/05/20 10:59 Date of discharge: 07/06/20 Attending physician: TAYLER VIRGEN Primary care physician: GLOBAL LOGISTICS MANAGER Hospitalization Condition: Stable Hospital course: Patient is 80 years old male with history of hypertension, congestive heart failure, Hodgkin's lymphoma and coronary artery disease. Patient presented to the ER complaining of left-sided chest pain associated with shortness of breath for the last 2 days. Patient denied any cough, fever or chills. Patient also stated that he feels weak all over and very exhausted even if he walks for short distance. Patient stated that he is not taking any medication at this moment. Last admission reviewed. Stress test was negative Nuclear stress test 06/17/2020 Negative for ischemia CTA chest from 06/16/2020 Negative for cancer Assessment and Plan Advance Directives: Yes (Full code) VTE prophylaxis?: Chemical Plan of care discussed with patient/family: Yes - Patient Problems (1) Acute costochondritis Current Visit: No Status: Acute Plan to address problem: Serial troponins Negative Meloxicam 15 mg once a day for 7 days with food okay (2) Hodgkins lymphoma Current Visit: Yes Status: Chronic Plan to address problem: In remission Patient to follow-up with his oncologist Patient to follow-up with oncology--referral given to Dr. Alford (3) Coronary artery disease Current Visit: Yes Status: Chronic Qualifiers: Coronary Disease-Associated Artery/Lesion type: [place] artery [place] vs. transplanted heart: [place] heart Plan to address problem: On aspirin (4) HTN (hypertension) Current Visit: Yes Status: Chronic Qualifiers: Hypertension type: essential hypertension Qualified Code(s): I10 - Essential (primary) hypertension (5) Alcohol use disorder Current Visit: No Status: Chronic Plan to address problem: No alcohol withdrawal (6) DVT prophylaxis Current Visit: No Status: Acute Plan to address problem: On heparin and GI prophylaxis Disposition: TO HOME OR SELFCARE Final Discharge Diagnosis (Prints w/discharge instructions): Acute costochondritis. Hodgkin's lymphoma in remission. Hypertension. Coronary artery disease. EtOH dependence Time spent for discharge: 35 minutes - Discharge Diagnoses (1) Acute coronary syndrome Status: Acute (2) Hodgkins lymphoma Status: Chronic (3) Coronary artery disease Status: Chronic Qualifiers: Coronary Disease-Associated Artery/Lesion type: [place] artery [place] vs. transplanted heart: [place] heart (4) HTN (hypertension) Status: Chronic Qualifiers: Hypertension type: essential hypertension Qualified Code(s): I10 - Essential (primary) hypertension (5) Alcohol use disorder Status: Chronic (6) DVT prophylaxis Status: Acute Core Measure Documentation - Palliative Care Palliative Care/ Comfort Measures: Not Applicable - Core Measures Any of the following diagnoses?: none Exam - Constitutional Vitals: Temp Pulse Resp BP Pulse Ox 98.2 F 70 18 92/54 99 07/06/20 11:41 07/06/20 11:41 07/06/20 14:00 07/06/20 11:41 07/06/20 14:00 General appearance: Present: no acute distress, well-nourished - EENT Eyes: Present: PERRL ENT: hearing intact, clear oral mucosa - Neck Neck: Present: supple, normal ROM - Respiratory Respiratory effort: normal Respiratory: bilateral: CTA - Cardiovascular Heart rate: 78 Rhythm: regular Heart Sounds: Present: S1 & S2. Absent: rub, click - Extremities Extremities: pulses symmetrical, No edema Peripheral Pulses: within normal limits - Abdominal General gastrointestinal: Present: soft, non-tender, non-distended, normal bowel sounds Male genitourinary: Present: normal - Integumentary Integumentary: Present: clear, warm, dry - Musculoskeletal Musculoskeletal: gait normal, strength equal bilaterally - Psychiatric Psychiatric: appropriate mood/affect, intact judgment & insight - Neurologic Neurologic: CNII-XII intact, moves all extremities Plan Activity: no restrictions Diet: low fat Follow up with: KEAGAN FORBES MD [Primary Care Provider] - 3-5 Days ANN MORTON MD [Staff Physician] - 7 Days
--- NOTE | 2020-07-07 21:30 | Electrocardiograph Report ---
[facility] Test Date: 2020-07-04 Test Time: 22:19:29 Pat Name: SHARON PAT Department: Room: A467 Gender: M Press Officer: DA : 1940 Requested By: ED DOC Order Number: [id number] Reading MD: Juan Manuel Paul Measurements Intervals [place] Rate: 86 P: 68 AL: 130 QRS: 31 QRSD: 140 T: 42 QT: 395 QTc: 472 Interpretive Statements Sinus rhythm Probable left atrial enlargement Right bundle branch block Left ventricular hypertrophy Compared to ECG 06/18/2020 22:48:57 No significant change Electronically Signed On 07-07-2020 21:30:20 EDT by Juan Manuel Paul
--- NOTE | 2020-07-07 21:42 | Electrocardiograph Report ---
[facility] Test Date: 2020-07-06 Test Time: 09:33:02 Pat Name: SHARON PAT Department: Room: A467 1 Gender: M Director Talent Acquisition: FRANCISCO : 1940 Requested By: [place] RAMON Order Number: [id number] Reading MD: Juan Manuel Paul Measurements Intervals [place] Rate: 64 P: 80 NE: 136 QRS: 12 QRSD: 141 T: 43 QT: 444 QTc: 457 Interpretive Statements Sinus rhythm Right bundle branch block Probable left ventricular hypertrophy Compared to ECG 07/04/2020 22:19:29 No significant Electronically Signed On 07-07-2020 21:42:25 EDT by Juan Manuel Paul
== END 2020-07-06 16:35 | disposition home or self-care (01) ==
LOC: ED 19:49 → 4A 07-05 10:59
PROVIDERS: ADMIT Internal Medicine; ATTEND Internal Medicine
DX: I24.9 Acute ischemic heart disease, unspecified (principal); C81.90 Hodgkin lymphoma, unspecified, unspecified site; I25.10 Atherosclerotic heart disease of native coronary artery without angina pectoris; I11.0 Hypertensive heart disease with heart failure; I50.9 Heart failure, unspecified; J45.909 Unspecified asthma, uncomplicated; K21.9 Gastro-esophageal reflux disease without esophagitis; F10.10 Alcohol abuse, uncomplicated; F17.210 Nicotine dependence, cigarettes, uncomplicated
CPT/HCPCS: 36415; 71045; 80053; 83036; 83880; 84484; 85025; 93005; 96361; 96374; 96375; 96376; 99285; 99406; G0378; J1170; J1940; J2270; J7030; 80307; 80320; 81001; 83690; G0480

== ENCOUNTER 2020-07-06 22:32 | Emergency (ER) | payer MEDICARE ==
--- NOTE | 2020-07-07 01:15 | XRay Report ---
CHEST 1 VIEW INDICATION: chest pain COMPARISON: 07/04/2020 FINDINGS: SUPPORT DEVICES: None. HEART / MEDIASTINUM: No significant abnormality. LUNGS / PLEURA: No significant pulmonary or pleural abnormality. No pneumothorax. ADDITIONAL FINDINGS: Old rib fractures IMPRESSION: 1. No acute cardiopulmonary disease Signer Name: Denis Velarde MD Signed: 07/07/2020 1:10 AM Workstation Name: [id number]
[2020-07-07 02:19] LABS: Basophils # (Auto) 0.1 K/mm3 (0.0-0.1); Basophils % (Auto) 0.6 % (0.0-1.8); Eosinophils # (Auto) 0.2 K/mm3 (0.0-0.4); Hematocrit 41.8 % (35.5-45.6); Hemoglobin 14.3 gm/dl (11.8-15.2); Lymphocytes % (Auto) 20.1 % (13.4-35.0); Mean Corpuscular HGB Conc 34 % (32-34); Mean Corpuscular Volume 87 fl (84-94); Monocytes # (Auto) 0.6 K/mm3 (0.0-0.8); Platelet Count 196 K/mm3 (140-440); Red Blood Count 4.82 M/mm3 (3.65-5.03); Red Cell Distribution Width 17.2 % (13.2-15.2)
[2020-07-07 02:42] LABS: Alanine Aminotransferase 17 units/L (7-56); Albumin 4.3 g/dL (3.9-5); BUN/Creatinine Ratio 15; Blood Urea Nitrogen 15 mg/dL (9-20); Calcium 9.6 mg/dL (8.4-10.2); Hemolysis Index 5
--- NOTE | 2020-07-07 06:39 | Emergency Department Report ---
ED Alcohol HPI - General Chief Complaint: Chest Pain Stated Complaint: ETOH Time Seen by Provider: 07/07/20 06:29 Source: patient, EMS Mode of arrival: Wheelchair Limitations: No Limitations - History of Present Illness Initial Comments: Patient is 80 years old male familiar to me I saw him 2 days ago admitted for chest pain and discharged yesterday from the hospital. Patient brought to the emergency room via EMS after patient was found intoxicated in a parking lot of one of the local gas station. Patient with a strong smell of alcohol. Patient reported to triage nurse that he is having chest pain but when I ask him he denied. Patient also denied any shortness of breath, fever, chills or cough. Patient also denied any suicidal or homicidal ideation. No visual or auditory hallucination. 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 Chronic Alcohol Use: Yes Recent Trauma: No Associated Symptoms: denies other symptoms - Related Data Home Medications Medication Instructions Recorded Confirmed Last Taken Meclizine HCl 25 mg PO BID 06/20/20 07/05/20 Unknown Previous Rx's Medication Instructions Recorded Last Taken Type Meloxicam [Mobic] 15 mg PO QDAY #10 tablet 07/06/20 Unknown Rx lisinopriL [Zestril TAB] 20 mg PO QDAY #90 tablet 07/06/20 Unknown Rx Allergies Allergy/AdvReac Type Severity Reaction Status Date / Time No Known Allergies Allergy Verified 06/16/20 11:51 ED Review of Systems ROS: Stated complaint: ETOH Other details as noted in HPI Comment: All other systems reviewed and negative Constitutional: denies: chills, fever Respiratory: denies: cough, shortness of breath, SOB with exertion Cardiovascular: chest pain. denies: palpitations, dyspnea on exertion Gastrointestinal: denies: abdominal pain, nausea, vomiting, diarrhea, constipation, hematemesis, melena, hematochezia Musculoskeletal: denies: back pain Neurological: denies: headache, weakness, numbness, paresthesias, confusion ED Past Medical Hx - Past Medical History Previous Medical History?: Yes Hx Hypertension: Yes Hx Heart Attack/AMI: Yes Hx Congestive Heart Failure: No Hx Diabetes: No Hx GERD: Yes Hx Asthma: Yes Hx COPD: No Hx HIV: No Additional medical history: "Heart problems" per EMS - Surgical History Past Surgical History?: No - Social History Smoking Status: Former Smoker - Medications Home Medications: Home Medications Medication Instructions Recorded Confirmed Last Taken Type Meclizine HCl 25 mg PO BID 06/20/20 07/05/20 Unknown History Meloxicam [Mobic] 15 mg PO QDAY #10 tablet 07/06/20 Unknown Rx lisinopriL [Zestril TAB] 20 mg PO QDAY #90 tablet 07/06/20 Unknown Rx ED Physical Exam - General Limitations: No Limitations General appearance: alert, in no apparent distress, appears intoxicated - Head Head exam: Present: atraumatic, normocephalic, normal inspection - Eye Eye exam: Present: normal appearance, PERRL - ENT ENT exam: Present: normal exam, normal orophraynx, mucous membranes moist - Neck Neck exam: Present: normal inspection, full ROM. Absent: tenderness, meningismus - Respiratory Respiratory exam: Present: normal lung sounds bilaterally - Cardiovascular Cardiovascular Exam: Present: bradycardia, normal heart sounds - GI/Abdominal GI/Abdominal exam: Present: soft, normal bowel sounds. Absent: distended, tenderness, guarding, rebound, rigid, organomegaly, mass, bruit, pulsatile mass, hernia - Extremities Exam Extremities exam: Present: normal inspection, full ROM, normal capillary refill. Absent: tenderness - Back Exam Back exam: Present: normal inspection, full ROM. Absent: CVA tenderness (R), CVA tenderness (L) - Neurological Exam Neurological exam: Present: alert, oriented X3, CN II-XII intact. Absent: motor sensory deficit - Skin Skin exam: Present: warm, intact, normal color ED Course Vital Signs 07/06/20 07/07/20 07/07/20 23:18 06:26 06:29 Temperature 98.3 F 98 F Pulse Rate 53 L 77 77 Respiratory 18 16 17 Rate Blood Pressure 103/63 111/57 Blood Pressure [Left] O2 Sat by Pulse 96 100 100 Oximetry 07/07/20 07/07/20 07/07/20 07:00 08:00 09:00 Temperature Pulse Rate 73 74 62 Respiratory 26 H 19 18 Rate Blood Pressure 108/56 108/56 125/56 Blood Pressure [Left] O2 Sat by Pulse 96 99 99 Oximetry 07/07/20 07/07/20 07/07/20 10:00 11:00 12:00 Temperature Pulse Rate Respiratory Rate Blood Pressure 115/69 119/39 126/45 Blood Pressure [Left] O2 Sat by Pulse 97 97 96 Oximetry 07/07/20 07/07/20 07/08/20 13:00 20:40 01:00 Temperature 98.5 F 98.2 F Pulse Rate 88 82 79 Respiratory 20 16 16 Rate Blood Pressure 126/45 Blood Pressure 140/75 133/72 [Left] O2 Sat by Pulse 96 100 100 Oximetry 07/08/20 07/08/20 09:14 09:15 Temperature 98.2 F Pulse Rate 74 75 Respiratory 18 Rate Blood Pressure 136/61 Blood Pressure [Left] O2 Sat by Pulse 99 98 Oximetry - Reevaluation(s) Reevaluation #1: 07/07/20 14:16 When the nurse went to discharge the patient patient stated that he has having suicidal thoughts and he is thinking about harming himself. He stated that he does not have a gun but if he have 1 he will finish of his life. Patient still denying any auditory or visual hallucination. No homicidal ideation. Psychiatric team consulted for further management. ED Medical Decision Making - Lab Data Result diagrams: 07/07/20 01:53 07/07/20 01:53 - EKG Data -: EKG Interpreted by Me EKG shows normal: sinus rhythm Rate: normal - EKG Data Interpretation: no acute changes - Radiology Data Radiology results: report reviewed - Medical Decision Making Patient is 80 years old male familiar to me I saw him 2 days ago admitted for chest pain and discharged yesterday from the hospital. Patient brought to the emergency room via EMS after patient was found intoxicated in a parking lot of one of the local gas station. Patient with a strong smell of alcohol. Patient reported to triage nurse that he is having chest pain but when I ask him he denied. Patient also denied any shortness of breath, fever, chills or cough. Patient also denied any suicidal or homicidal ideation. No visual or auditory hallucination. EKG showed no ST elevation. Labs reviewed and is unremarkable including a negative troponin x3. Chest x-ray is unremarkable. Patient remained stable sleeping all the time in the ER with no difficulty. Patient strongly advised to follow-up with his primary doctor in the next 2 to 3 days and to return to the ER if he develop any new symptoms. Critical care attestation.: If time is entered above; I have spent that time in minutes in the direct care of this critically ill patient, excluding procedure time. ED Disposition Clinical Impression: Chest pain, Alcohol intoxication, Suicidal ideation Disposition: DC-01 TO HOME OR SELFCARE Is pt being admited?: No Condition: Stable Instructions: Nonspecific Chest Pain, Adult Additional Instructions: Professional and Agency Contacts To help [facility](30/08) [place] Crisis Line: Suicide Prevention Line: Crisis Text Line: Text [place] to [phone] Emergency: 911 Outpatient COMMUNITY Behavioral Health Resources: SIMRAN: [facility] [address] [place], [place] [address] CARLO: [facility] [address] [place] [address] JULIA: [place] [address] [place] [address] Tuesday thru Tuesday - 8am - 5pm [facility] Address: [address] [place] [address] LINDSEY: [facility] Address: [address] [place] [address] Tuesday thru Tuesday- 7am-2pm [facility] Address: [address] [place] [address] Tuesday thru Tuesday: 8:30AM-5PM OUTPATIENT MENTAL HEALTH RESOURCES [facility], [address] [place], [place] [id number] [facility] Hossein Irwin MD: [address] [facility] [address] [place], [place] [id number] [facility]: [address] [place], [place] [id number] [employer] [place], [place] [id number] [phone] [facility]: [address] [facility] [address] [place], [place] [id number] [facility]: [address] [facility] [address] [facility] [id number] [facility]: [address] [place] [address] Mil Yoon MD: [address] [place] [facility] [address] [facility]: [address] [place] [phone] [place] CRISIS AND ACCESS LINE: * Referrals: PRIMARY CAREMD [Primary Care Provider] - 3-5 Days
[2020-07-07 21:03] LABS: Bilirubin,Urine NEG (Negative); Blood,Urine NEG (Negative); Color,Urine Yellow (Yellow); Mucus,Urine FEW /HPF; Protein,Urine <15 mg/dL mg/dL (Negative)
[2020-07-07 21:11] LABS: Amphetamine Screen,Urine Negative; Benzodiazepines Screen,Urine Negative; Cannabinoid Screen,Urine Negative; Cocaine Screen,Urine Negative; Methadone Screen,Urine Negative; Opiate Screen,Urine Negative
[2020-07-08] MEDS ORDERED: ACETAMINOPHEN 500 MG TAB PO ONE (09:12)
--- NOTE | 2020-07-08 09:44 | Consultation ---
History of Present Illness - Reason for Consult Consult date: 07/08/20 Reason for consult: MHE Requesting physician: KY RAMON - History of Present Psychiatric Illness Per ED Note: Patient is 80 years old male familiar to me I saw him 2 days ago admitted for chest pain and discharged yesterday from the hospital. Patient brought to the emergency room via EMS after patient was found intoxicated in a parking lot of one of the local gas station. Patient with a strong smell of alcohol. Patient reported to triage nurse that he is having chest pain but when I ask him he denied. Patient also denied any shortness of breath, fever, chills or cough. Patient also denied any suicidal or homicidal ideation. No visual or auditory hallucination. PSYCH HPI Patient is a 80-year-old , unemployed on SSI, disabled - [place] male with past psychiatric history of depression and alcohol use disorder who was presented to the ED for alcohol intoxication acute by EMS after he was found at a local gas station. Patient states that he was brought in here because he became unconscious probably after he got drunk and did some cocaine yesterday, because he woke up wanting to find himself in the hospital. Patient states that alcohol is not a problem that its his life, though patient denies acute suicidal ideation or homicidal ideation, and also denies hearing voices he endorses being depressed and says theres really not anything anyone can do about it. PAST PSYCHIATRIC HISTORY: Diagnoses: Depression Suicide attempts or Self-harm behavior: Denies Prior psychiatric hospitalizations: Denies Substance Abuse history: crack, alcohol Previous psychiatric medications tried: Cymbalta Outpatient treatment: Yes, at the [facility] Psychiatric History None reported or documented SOCIAL HISTORY Marital Status: Living Arrangements: care home Employment Status: disabled Access to guns/weapons: patient denies Education: college History of Abuse: patient denies Legal History: patient denies Review of Symptoms: Constitutional: Negative for weight loss ENT: Negative for stridor Respiratory: Negative for cough or hemoptysis All other systems reviewed and are negative MENTAL STATUS EXAMINATION General Appearance and Behavior: Age appropriate, good hygiene, wearing appropriate clothes, good eye contact, cooperative polite with questioning. Cooperation: Participating/engaged Psychomotor Behavior: unremarkable and within normal limits Mood: Good Affect and affective range: congruent with mood Thought Process: Fluent/Logical, Thought Content: Within reality, Speech: Normal volume, Regular rate and rhythm, Intellectual Functioning: Average Suicidal Ideation: Denies SI Homicidal Ideation: Denies HI Impulse Control: Unimpaired Insight and Judgment: Normal insight and judgment, Memory: Normal, Attention: Normal, Orientation: Alert, oriented, Assessment and Plan - Patient Problems (1) Alcohol use disorder Current Visit: Yes Status: Acute F10.10 Treatment Plan Defer to case management for PHP program outpt alcohol rehab referrals MEDICATIONS: Risks, benefits and alternatives of medications discussed with the patient, questions answered and consent obtained from patient. PSYCHOTHERAPY: Supportive psychotherapy provided MEDICAL: Per primary team DELIRIUM PRECAUTIONS: Please re-orient patient frequently, keep lights on during the day, and minimize benzodiazepines and opiates as these medications could worsen patient's confusion. DOOR HANGER: DISPOSITION: Do Not Recommend acute inpatient psychiatric hospitalization at this time. Case discussed with Dr. Myers who agrees with current disposition LEGAL STATUS: 1013 rescinded. Defer to case management for PHP program outpt alchol referrals FOLLOW-UP: Will sign off Thank you for the consult. Please contact with any questions and/or concerns. Medications and Allergies Allergies Allergy/AdvReac Type Severity Reaction Status Date / Time No Known Allergies Allergy Verified 06/16/20 11:51 Home Medications Medication Instructions Recorded Confirmed Last Taken Type Meclizine HCl 25 mg PO BID 06/20/20 07/05/20 Unknown History Meloxicam [Mobic] 15 mg PO QDAY #10 tablet 07/06/20 Unknown Rx lisinopriL [Zestril TAB] 20 mg PO QDAY #90 tablet 07/06/20 Unknown Rx Mental Status Exam - Vital signs Last Vital Signs Temp 98.2 F 07/08/20 01:00 Pulse 79 07/08/20 01:00 Resp 16 07/08/20 01:00 BP 133/72 07/08/20 01:00 Pulse Ox 100 07/08/20 01:00 Results Result Diagrams: 07/07/20 01:53 07/07/20 01:53 Abnormal lab results 07/07/20 07/07/20 Range/Units 14:19 14:19 Salicylates < 0.3 L (2.8-20.0) mg/dL Acetaminophen 5.0 L (10.0-30.0) ug/mL All other labs normal.
[2020-07-08 13:06] VITALS: BP 136/61
--- NOTE | 2020-07-09 10:09 | Electrocardiograph Report ---
[facility] Test Date: 2020-07-07 Test Time: 00:18:59 Pat Name: SHARON PAT Department: Room: Gender: M Manager Administrative Services: EP : 1940 Requested By: KY RAMON Order Number: [id number] Reading MD: Ap Hartman Measurements Intervals [place] Rate: 80 P: 63 NC: 139 QRS: -1 QRSD: 133 T: 19 QT: 397 QTc: 484 Interpretive Statements Sinus rhythm Sinus pause Right bundle branch block Probable left ventricular hypertrophy Compared to ECG 07/06/2020 09:33:02 Sinus pause or arrest now present Electronically Signed On 07-09-2020 10:09:08 EDT by Ap Hartman
== END 2020-07-08 16:00 | disposition home or self-care (01) ==
LOC: EEVIPCON 22:32 → ED 22:32
DX: R45.851 Suicidal ideations (principal); F10.129 Alcohol abuse with intoxication, unspecified; R07.89 Other chest pain; I10 Essential (primary) hypertension; I25.2 Old myocardial infarction; K21.9 Gastro-esophageal reflux disease without esophagitis; J45.909 Unspecified asthma, uncomplicated; Z87.891 Personal history of nicotine dependence; Z79.899 Other long term (current) drug therapy
CPT/HCPCS: 36415; 71045; 80053; 80307; 80320; 81001; 83690; 84484; 85025; 93005; G0480

== ENCOUNTER 2020-07-16 02:41 | Emergency (ER) | payer MEDICARE ==
[2020-07-16] MEDS ORDERED: ONDANSETRON 4 MG/2 ML INJ IV ONE (02:51)
[2020-07-16] MEDS ORDERED: ACETAMINOPHEN 500 MG TAB PO STA (02:51)
[2020-07-16] MEDS ORDERED: KETOROLAC 30 MG/1 ML INJ IV ONE (02:57)
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
--- NOTE | 2020-07-16 03:27 | XRay Report ---
CHEST 1 VIEW INDICATION / CLINICAL INFORMATION: chest pain. COMPARISON: 05/07/2020 FINDINGS: SUPPORT DEVICES: None. HEART / MEDIASTINUM: No significant abnormality. LUNGS / PLEURA: No significant acute pulmonary or pleural abnormality. Minimal bibasilar scarring. No pneumothorax. Calcified granuloma, right lung base. ADDITIONAL FINDINGS: A couple old healed right rib fractures. IMPRESSION: 1. No acute pulmonary or pleural disease. No interval change. Signer Name: Shameka Abraham MD Signed: 07/16/2020 3:22 AM Workstation Name: [id number]
[2020-07-16 03:58] LABS: Basophils % (Auto) 0.5 % (0.0-1.8); Eosinophils # (Auto) 0.1 K/mm3 (0.0-0.4); Eosinophils % (Auto) 2.1 % (0.0-4.3); Hematocrit 41.7 % (35.5-45.6); Lymphocytes # (Auto) 0.9 K/mm3 (1.2-5.4); Lymphocytes % (Auto) 16.2 % (13.4-35.0); Mean Corpuscular HGB Conc 34 % (32-34); Mean Corpuscular Volume 86 fl (84-94); Monocytes # (Auto) 0.4 K/mm3 (0.0-0.8); Monocytes % (Auto) 7.1 % (0.0-7.3); Platelet Count 182 K/mm3 (140-440); Red Blood Count 4.83 M/mm3 (3.65-5.03)
[2020-07-16 04:17] LABS: BUN/Creatinine Ratio 11; Blood Urea Nitrogen 10 mg/dL (9-20); Calcium 9.4 mg/dL (8.4-10.2); Hemolysis Index 4
[2020-07-16 05:37] VITALS: BP 129/62
--- NOTE | 2020-07-24 10:49 | Electrocardiograph Report ---
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
== END 2020-07-16 05:36 | disposition home or self-care (01) ==
LOC: ED 02:41
DX: I25.10 Atherosclerotic heart disease of native coronary artery without angina pectoris (principal); M94.0 Chondrocostal junction syndrome [Tietze]; F19.10 Other psychoactive substance abuse, uncomplicated; R07.89 Other chest pain; I10 Essential (primary) hypertension; I25.2 Old myocardial infarction; K21.9 Gastro-esophageal reflux disease without esophagitis; J45.909 Unspecified asthma, uncomplicated; F17.200 Nicotine dependence, unspecified, uncomplicated; F12.10 Cannabis abuse, uncomplicated; Z79.899 Other long term (current) drug therapy
CPT/HCPCS: 36415; 71045; 80048; 84484; 85025; 93005; 96374; 96375; 99284; J1885; J2405; 80320; G0480